=== PATIENT | female | born 1935 | race Caucasian/White ===

== ENCOUNTER → 2020-11-26 15:32 | Outpatient (CLI) | payer MEDICARE, BC, SELFPAY ==
--- NOTE | ~2020-11-26 | XR_ITS ---
XR knee LT min 4V 11/26/2020 15:52 Indication: Left knee pain Procedure: 4 views left knee Comparison: 05/02/2019 Findings: There is severe osteoarthritis, most advanced at the medial compartment. No fracture or tra umatic malalignment. There is moderate medial soft tissue swelling. No acute fracture or traumatic ma lalignment. No significant joint effusion. No foreign bodies. Impression: 1: Severe osteoarthritis of the left knee. Reviewed, dictated and finalized at location B. Impression: 1: Severe osteoarthritis of the left knee.
== END ==
PROVIDERS: Visit Provider Nurse Practitioner Adult Health
DX: M17.12 Unilateral primary osteoarthritis, left knee (principal)
CPT/HCPCS: 73564

== ENCOUNTER 2025-06-29 17:19 | Emergency (ER) | payer MEDICARE, BC, SELFPAY ==
--- NOTE | ~2025-06-29 | XR_ITS ---
EXAMINATION: XR hand LT min 3V DATE: 06/29/2025 18:30 INDICATION: Trauma. TECHNIQUE: Views of left hand were obtained. COMPARISON: None. FINDINGS: No acute fractures of the left hand. Osteopenic bones. Severe degenerative changes of first carpometacarpal joint. Arthritis of interphalangeal joints. IMPRESSION: 1. No acute fractures. Diffuse osteopenia with arthritis as described above. Repeat x-rays are recommended if symptoms are localized and persistent. Reviewed, dictated and finalized at location T. INUOUS PICKLING LINE PICKLER HELPER IMPRESSION: 1. No acute fractures. Diffuse osteopenia with arthritis as described above. Re peat x-rays are recommended if symptoms are localized and persistent.
--- NOTE | ~2025-06-29 | CT_ITS ---
EXAMINATION: CT brain wo con DATE: 06/29/2025 18:06 INDICATION: Trauma due to fall. Patient on blood thinner. TECHNIQUE: Computed tomography (CT) of the head was performed without intravenous contrast. The mA was adjusted according to patient size. Iterative reconstruction technique was employed. The dose-length product was 733.07 mGy-cm. COMPARISON: None FINDINGS: No acute intracranial bleed are noted. However, there is evidence of low density subdural collections on both sides. There is peripheral chronic subdural collection on the left side measuring up to 12 mm in width. Chronic low density subdural collection is noted to the right of falx cerebri, measuring 9 mm in width. No effacement of sulci are seen. No ventriculomegaly. There is minimal midline shift to the right by less than 2 mm. No acute or focal abnormalities in the posterior fossa. No acute cranial fracture is noted. There is hematoma of the scalp in the left supraorbital region. IMPRESSION: 1. No acute intracranial bleed. 2. 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 Minimal midline shift to the right. There is no effacement of sulci. 3. Hematoma on the scalp in the left supraorbital region. 4. Critical findings conveyed to attending physician at 6:25 PM by telephone call. Reviewed, dictated and finalized at location T. RDOUS MATERIAL TECHNICIAN IMPRESSION: 1. No acute intracranial bleed. 2. 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 Minim al midline shift to the right. There is no effacement of sulci. 3. Hematoma on the scalp in the left supraorbital region. 4. Critical findings conveyed to attending physician at 6:25 PM by telephone sherie escobar
--- NOTE | ~2025-06-29 | CT_ITS ---
EXAMINATION: CT facial bones and cervical spine: DATE: 06/29/2025. INDICATION: Trauma. Patient on blood thinners. TECHNIQUE: CT obtained through facial bones and C-spine and reviewed in multiple projections. Radiation dose 955 MG Y C.M. COMPARISON: None. FINDINGS: Hematoma the scalp in the left supraorbital region. The orbital floors are intact. I globes are intact. The pneumatic arches are normal. No acute findings of the mandible. No acute fractures of the cervical vertebrae. No compromise of bony spinal canal or neural foramen. Paravertebral soft tissues are unremarkable. IMPRESSION: 1. No acute facial fractures. Soft tissue hematoma the scalp in the left supraorbital region. 2. No acute fractures of the cervical vertebrae. No compromise of the spinal canal in the cervical region. Reviewed, dictated and finalized at location T. GER INFORMATION IMPRESSION: 1. No acute facial fractures. Soft tissue hematoma the scalp in the left suprao rbital region. 2. No acute fractures of the cervical vertebrae. No compromise of the spinal ca nal in the cervical region.
[2025-06-29 17:25] VITALS: BP 173/54; PULSE 61; RESP 18; TEMP 37; O2SAT 98
--- NOTE | 2025-06-29 17:26 | ED_ITS ---
HPI - Head Injury General Chief complaint: Head Injury <Joan Yung CLINICAL PSYCHOLOGY TEACHER - Last Filed: 06/29/25 17:30> Stated complaint: tripped and fell hitting head, on plavix <Joan Yung APRN - Last Filed: 06/29/25 17:30> Time Seen by Provider: 06/29/25 17:26 <Joan Yung CLINICAL PSYCHOLOGY TEACHER - Last Filed: 06/29/25 17:30> Focused HPI: Patient is an 82-year-old female who presents to the ER after sustaining a fall. Her family reports she missed a cement step and fell forward landing on her face. Patient reports she is on Plavix and has a pacemaker. She denies any loss of consciousness, visual changes, or nausea. Patient endorses a history of high blood pressure. GENERAL: Well-appearing, well-nourished, and in no acute distress. HEAD: Normocephalic, approximately 1 cm laceration to L distal orbital area, approximately 1 cm laceration to L forehead CHEST: Clear to auscultation. ?No respiratory distress. HEART: Bradycardia, regular rhythm.? NEURO: ?Alert and oriented x3. Patient screened in triage and initial orders placed.? ?Additional care and disposition to be based upon?diagnostic testing and treatment. <Joan Yung, CLINICAL PSYCHOLOGY TEACHER - Last Filed: 06/29/25 17:30> Focused HPI: Patient is an 82-year-old female who presents to the ER after sustaining a fall. Her family reports she missed a cement step and fell forward landing on her face. Patient reports she is on Plavix and has a pacemaker. She denies any loss of consciousness, visual changes, or nausea. Patient endorses a history of high blood pressure. She is up to date on tetanus. Reports pain to the left hand. GENERAL: Well-appearing, well-nourished, and in no acute distress. HEAD: Normocephalic, approximately 1 cm laceration to L distal orbital area, approximately 1 cm laceration to L forehead CHEST: Clear to auscultation. ?No respiratory distress. HEART: Bradycardia, regular rhythm.? NEURO: ?Alert and oriented x3. Patient screened in triage and initial orders placed.? ?Additional care and disposition to be based upon?diagnostic testing and treatment. <Nanette L. Mchugh, PA-C - Last Filed: 06/29/25 19:15> Related Data Allergies/Adverse reactions: Allergies Allergy/AdvReac Type Severity Reaction Status Date / Time Sulfa (Sulfonamide Allergy Unknown Hives Verified 06/29/25 17:21 Antibiotics) <Joan Yung APRN - Last Filed: 06/29/25 17:30> Review of Systems Review of Systems: All systems reviewed & are unremarkable except as noted in HPI and below <Nanette Mchugh PA-C - Last Filed: 06/29/25 19:15> PMFSH Past Medical History Medical History: Medical History (Updated 06/29/25 @ 19:14 by Nanette Mchugh PA-C) Hyperlipidemia Hypertension <Joan Yung APRN - Last Filed: 06/29/25 17:30> Family History Family History: Family History (Updated 11/06/16 @ 23:56 by DOCTOR UNKNOWN) Father Hypertension, Onset Age: 67 Patient's father is Sibling Family history of coronary artery disease, Onset Age: 28 Patient's sister is Patient's brother is <Joan Yung APRN - Last Filed: 06/29/25 17:30> Social History Social History: Social History Second hand tobacco smoke exposure: No Alcohol intake: never <Joan Yung APRN - Last Filed: 06/29/25 17:30> Exam Narrative: GENERAL: Elderly, well-nourished, and in no acute distress. HEAD: Normocephalic. Superficial lacerations to the left eyelid and forehead EYES: PERRLA and EOMI. ENT: Nares clear, no rhinorrhea or epistaxis. Mucous membranes moist. Oropharynx without tonsillar hypertrophy exudate or other lesions. Bilateral TMs pearly billy non-bulging NECK: Supple. No adenopathy or masses. CHEST: Clear to auscultation. No respiratory distress. No wheezes rales or rhonchi HEART: Regular rate and rhythm. No murmur heard. Normal peripheral pulses. EXTREMITIES: Normal range of motion. No edema or obvious deformity. SKIN: Warm, dry, no rash. NEURO: No focal deficits. Alert and oriented x3. Cranial nerves 2-12 grossly intact PSYCH: Normal mood and affect <Nanette Mchugh PA-C - Last Filed: 06/29/25 19:15> Course Consultations Consultation #1: Spoke with Dr. Jose about patient and workup. Patient may follow up outpatient for chronic subdurals. No further evaluation needed at this time <Nanette Mchugh PA-C - Last Filed: 06/29/25 19:15> Date: 06/29/25 <Nanette Mchugh PA-C - Last Filed: 06/29/25 19:15> Vital Signs Vital signs: Vital Signs Temperature 98.6 F 06/29/25 17:25 Pulse Rate 61 06/29/25 17:25 Respiratory Rate 18 06/29/25 17:25 Blood Pressure 173/54 H 06/29/25 17:25 Pulse Oximetry 98 06/29/25 17:25 Oxygen Delivery Room Air 06/29/25 17:25 Temperature 98.6 F 06/29/25 17:25 Pulse Rate 61 06/29/25 17:25 Respiratory Rate 18 06/29/25 17:25 Blood Pressure 173/54 H 06/29/25 17:25 Pulse Oximetry 98 06/29/25 17:25 Oxygen Delivery Room Air 06/29/25 17:25 <Joan Yung, CLINICAL PSYCHOLOGY TEACHER - Last Filed: 06/29/25 17:30> Vital Signs Temperature 98.6 F 06/29/25 17:25 Pulse Rate 61 06/29/25 17:25 Respiratory Rate 18 06/29/25 17:25 Blood Pressure 173/54 H 06/29/25 17:25 Pulse Oximetry 98 06/29/25 17:25 Oxygen Delivery Room Air 06/29/25 17:25 Temperature 98.6 F 06/29/25 17:25 Pulse Rate 61 06/29/25 17:25 Respiratory Rate 18 06/29/25 17:25 Blood Pressure 173/54 H 06/29/25 17:25 Pulse Oximetry 98 06/29/25 17:25 Oxygen Delivery Room Air 06/29/25 17:25 <Nanette Mchugh PA-C - Last Filed: 06/29/25 19:15> Procedures Laceration Laceration 1: Date: 06/29/25 <ARACELI Cantu Last Filed: 06/29/25 19:15> Time: 19:14 <ARACELI Cantu Last Filed: 06/29/25 19:15> Site: face <ARACELI Cantu Last Filed: 06/29/25 19:15> Side (If applicable): left <ARACELI Cantu Last Filed: 06/29/25 19:15> Description: linear <ARACELI Cantu Last Filed: 06/29/25 19:15> Depth: simple, single layer <ARACELI Cantu Last Filed: 06/29/25 19:15> Pre-repair: irrigated <ARACELI Cantu Last Filed: 06/29/25 19:15> ====== Skin Level ======: Skin layer closed with: dermabond <ARACELI Cantu Last Filed: 06/29/25 19:15> ====== Subcutaneous Layer ======: ====== Muscle Layer ======: ====== Tendon Layer ======: MDM - Head Injury MDM Narrative Medical decision making narrative: Patient presents to the ER after a fall today with head injury. Patient is neurologically intact. CT brain without acute findings. Showing evidence of chronic bilateral subdurals. Cervical spine and facial bones without acute findings. Left hand x-ray without acute osseous abnormalities. Patient and family updated on workup. Patient may follow up patient with nurse surgery for chronic findings. Given warnings to return to the ER <ARACELI Cantu Last Filed: 06/29/25 19:15> Differential Diagnosis Differential diagnosis: Likely concussion without loss of consciousness, closed head injury, subdural hematoma and other (cervical spine fracture, facial bone fracture) <ARACELI Cantu Last Filed: 06/29/25 19:15> Imaging Data Radiologist's impression: ITS Impressions Head CT 06/29/25 18:09 IMPRESSION: 1. No acute intracranial bleed. 2. 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 Minimal midline shift to the right. There is no effacement of sulci. 3. Hematoma on the scalp in the left supraorbital region. 4. Critical findings conveyed to attending physician at 6:25 PM by telephone call. Head/Cervical Spine/Facial Bones CT 06/29/25 18:16 IMPRESSION: 1. No acute facial fractures. Soft tissue hematoma the scalp in the left supraorbital region. 2. No acute fractures of the cervical vertebrae. No compromise of the spinal canal in the cervical region. Hand X-Ray 06/29/25 18:43 IMPRESSION: 1. No acute fractures. Diffuse osteopenia with arthritis as described above. Repeat x-rays are recommended if symptoms are localized and persistent. <Nanette Mchugh PA-C - Last Filed: 06/29/25 19:15> Critical Care Time Critical Care Time Critical Care Time: No <Nanette Mchugh PA-C - Last Filed: 06/29/25 19:15> Discharge Plan Discharge Clinical Impression: Closed head injury, Chronic subdural hematoma, Contusion of left hand, Laceration <Joan Yung APRN - Last Filed: 06/29/25 17:30> Patient Disposition: Home <Joan Yung APRN - Last Filed: 06/29/25 17:30> Condition: Stable <Joan Yung APRN - Last Filed: 06/29/25 17:30> Instructions: Head Injury (ED), Skin Adhesive Care (ED), Facial Laceration (ED) <Joan Yung APRN - Last Filed: 06/29/25 17:30> Additional Instructions: Return to the emergency department if you experience fever, chest pain, shortness of breath, abdominal pain with nausea and vomiting, weakness, numbness, or any other symptoms that are concerning to you. Rest. Ice to the area. Over the counter pain medication as needed Follow up with neurosurgery <Joan Yung APRN - Last Filed: 06/29/25 17:30> Patient Language: Norwegian <Joan Yung APRN - Last Filed: 06/29/25 17:30> Follow-up/Referrals: Darin Jose MD [Physician, Neurosurgery] UNKNOWN,DOCTOR [Primary Care Provider] <Joan Yung, CLINICAL PSYCHOLOGY TEACHER - Last Filed: 06/29/25 17:30>
--- OUTSIDE RECORDS SUMMARY | 2025-06-29 18:15 | XMS_ITS | Patient Health Record ---
Author Organization [facility] Address [address] [place] [address] Care Team Providers Care Toe Stapler Name Role Phone Otoniel Springer MD Primary Care Provider Vasu Duenas Unavailable [phone] Allergies Allergen (clinical drug ingredient) Drug/Non Drug Allergy documented on EMR Reaction Allergy Type Onset Date Status hydrochlorothiazide / triamterene Triamterene-HCTZ Unknown Drug Allergy Active SULFA Drugs Unknown Drug Allergy Activ e Reason For Referral No Information Medications Medication SIG (Take, Route, Frequency, Duration) Notes Start Date End Date Status Pepcid Complete Acti ve OTC/Vitamins D3, B12, Caltrate Active Metoprolol Succinate Active Ferrex 150 Active Rosuvastatin Calcium Active Lisinopril Active Furosemide Active Clopidogrel Bisulfate Active Social History Tobacco Use: Social History Observation Description Date Details (start date - stop date) Never Smoker NA - NA Tobacco Use/Smoking Question Answer Notes Are you a nonsmoker Problems Problem Type SNOMED Code ICD Code Onset Dates Problem Status W/U Status Risk Notes Problem History of malignant neoplasm of stomach (018061973) Personal history of other malignant neoplasm of stomach (Z85.028) Active confirmed Problem Iron deficiency anemia (81592562) Iron deficiency anemia, unspecified iron deficiency anemia type (D50.9) Active confirmed Problem Black stools (61883258) Black stools (K92.1) Active confirmed 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 Plan Of Treatment Pending Test Test Name Order Date EGD 10/14/2020 Insurance Providers Payer Name Payer Address Payer Phone Subscriber Number Group Number Insured Name Patient Relationship to Insured Coverage Start Date Coverage End Date Medicare E2 [address] [address] [place] [address] [id number] [employer] Self - patient is the insured 2 [facility] E2 [address] [place] [address] [id number] Joaquim Pecka Self - patient is the insured Medical (General) History Medical History History ICD Code Hiatal Hernia Diverticulosis Stomach Cancer Kidney Problems TIA MALT Anemia Hypertension Diabetes Type 2 Hypercholesterolemia Tachycardia Osteoarthritis Surgical History Surgery Date(Month/Year) Colonoscopy (Outside Provider) 2018 Endoscopy 03/2018 Cholecystectomy Partial hysterectomy Stomach cancer Hernia repair Bowel Lift Pacemaker Hospitalization History Reason Date(Month/Year) Child x2 Chest pain Symptoms of Heart Attack
--- OUTSIDE RECORDS SUMMARY | 2025-06-29 18:15 | XMS_ITS | Encounter Summary ---
Author Organization [facility] Address [address] [place] [address] Care Team Providers Care Betting Clerks Name Role Phone Otoniel Springer MD Primary Care Provider [phone] Reason for Visit * Reason Comments Patient Communication Encounter Details Date Type Department Care Team ([facility] st Contact Info) Description 12/12/2024 Telephone [facility] [address] [place] [address] Otoniel Springer MD [address] [facility] [address] [place] [address] Patient Communication Social History Tobacco Use Types Packs/Day Years Used Date Smoking Tobacco: Never Smokeless Tobacco: Never Alcohol Use Standard Drinks/Week Comments Not Currently 0 (1 standard drink = 0.6 oz pur e alcohol) Social Connections Answer Date Recorded Frequency of Communication with Friends and Fami ly Not on file 07/10/2020 Frequency of Social Gatherings with Friends and Family Not on file 07/10/2020 How often do you attend congregational or islam serv ices? Patient declined 07/10/2020 Do you belong to any clubs o r organizations such as congregational groups, unions, fraternal or athletic groups, or school groups? Patient declined 07/10/2020 Attends Club or Organization Meetings Not on bradley e 07/10/2020 Marital Status Not on file 07/10/2020 Financial Resource Strain Answer Date R ecorded How hard is it for you to pa y for the very basics like food, housing, medical care, and heating? Not hard at all 07/28/2021 Food Insecurity Answer Date Recorded In the past 12 months, have you worried that your food would run out before you had money to buy more? Never true 07/28/2021 In the past 12 months, did y ou run out of food and didn't have money to buy more? Never true 07/28/2021 Transportation Needs Answer Date Record ed In the past 12 months, has l ack of transportation kept you from medical appointments or from getting medications? No 07/28/2021 Lack of Transportation (Non-Medical) Not on file 07/28/2021 Feeling Safe Answer Date Recorded Are you in a relationship wi th someone who hurts you emotionally and/or physically? No 09/04/2024 Food Insecurity Answer Date Recorded Patient needs follow up regardin 11/23/2024 Transportation Needs Answer Date Record ed Patient needs follow up regardin 11/23/2024 Housing Stability Answer Date Recorded Social/Environmental Concerns No concerns Utility Needs Answer Date Recorded Patient needs follow up regardin 11/23/2024 Education Answer Date Recorded What is the highest level of school you have completed or the highest degree you have received? High school graduate 07/10/2020 Comments No Sex and Gender Information Value Date Recorded Sex Assigned at Not on file Legal Sex Female 3:30 AM REMELTER Gender Identity Not on file Sexual Orientation Not on file Occupation Industry Job Start Date Job End Date retired Not on file Not on file Not on file documented as of this encounter Miscellaneous Notes * Telephone Encounter - Savita Billingsley PCA - 12/12/2024 2:32 PM CDT Called and let patient know that labs are in and sent to [facility] * Telephone Encounter - Otoniel Springer MD - 12/12/2024 12:43 PM CDT In computer at [facility] * Telephone Encounter - Dinah Hillman - 12/12/2024 10:45 AM CDT Copied from [facility] #[id number]. Topic: Patient or Caregiver Communication Request >> December 12, 2024 10:43 AM Dinah Vieyra wrote: Patient or Caregiver requesting that a message be sent to Care Team Caller: Aaliyah Peck Patient/Caregiver Callback Number: [phone] Call Notes: needing to know if she needs blood work orders done and if she does need [facility] documented in this encounter Plan of Treatment Upcoming Encounters Date Type Department Care Team (Late st Contact Info) Description 07/10/2025 10:40 AM REMELTER Office Visit [facility] [address] [place] [id number] Otoniel Springer MD [address] [place] [address] [address] [place] [address] 10/01/2025 8:45 AM REMELTER Procedure visit [facility] AT [address] [place] [address] 12/17/2025 10:30 AM CDT Procedure visit [facility] AT [address] [place] [address] 12/17/2025 11:00 AM CDT Office Visit [facility] AT [address] [place] [address] Ebony Miller NP [address] [place] [address] [address] [place] [address] 04/01/2026 10:00 AM CDT Office Visit [facility] At [address] [place] [address] Evan Patterson MD [facility] [address] [place] [address] Scheduled Orders Name Type Priority Associated Diagnoses Orde r Schedule MICROALBUMIN/CREATININ E RATIO, RANDOM UR Lab Routine Type 2 diabetes mellitus with stage 4 chronic kidney disease, without long-term current use of insulin ([facility]) Expected: 12/12/2024 (Approximate), Expires: 12/12/2025 documented as of this encounter Procedures Procedure Name Priority Date/Time Associated Diagnosis Comments MICROALBUMIN/CREATINI NE RATIO, RANDOM UR Routine 12/14/2024 10:45 AM CDT CBC WITH DIFFERENTIAL Routine 12/14/2024 10:45 AM CDT Essential hypertension TSH Routine 12/14/2024 10:45 AM CDT Other hyperlipidemia HEMOGLOBIN A1C Routine 12/14/2024 10:45 AM CDT Type 2 diabetes mellitus with stage 4 chronic kidney disease, without long-term current use of insulin ([facility]) LIPID PANEL Routine 12/14/2024 10:45 AM CDT Other hyperlipidemia COMPREHENSIVE METABOLIC PANEL Routine 12/14/2024 10:45 AM CDT Other hyperlipidemia documented in this encounter Results * MICROALBUMIN/CREATININE RATIO, RANDOM UR (12/14/2024 10:45 AM CDT) CREATININE, URINE 103 20 - 275 mg/dL [facility] ALBUMIN, URINE 0.8 See Note: mg/dL [facility] Comment: Reference Range: Reference Range Not established ALB/CREAT RATIO, URINE 8 <30 mg/g creat [facility] Comment: The ADA defines abnormalities in albumin excretion as follows: Albuminuria Category Result (mg/g creatinine) Normal to Mildly increased <30 Moderately increased 30-299 Severely increased > OR = 300 The ADA recommends that at least two of three specimens collected within a 3-6 month period be abnormal before considering a patient to be within a diagnostic category. FASTING:YES FASTING: YES Test Performed at: [facility] [address] [facility] [place] [address] Shira Rutherford MD 12/14/2024 10:4 5 AM CDT 12/14/2024 10:47 AM CDT Otoniel Springer MD URINE ORDERABLES Final Result Performing Organization Address City/State/ZIP [facility] Phone Number [facility] [phone] [facility] [address] [facility] [place] [address] * (ABNORMAL) HEMOGLOBIN A1C (12/14/2024 10:45 AM CDT) HEMOGLOBIN A1C 7.6(H) <5.7 % of total Hgb [facility] Comment: For someone without known diabetes, a hemoglobin A1c value of 6.5% or greater indicates that they may have diabetes and this should be confirmed with a follow-up test. For someone with known diabetes, a value <7% indicates that their diabetes is well controlled and a value greater than or equal to 7% indicates suboptimal control. A1c targets should be individualized based on duration of diabetes, age, comorbid conditions, and other considerations. Currently, no consensus exists regarding use of hemoglobin A1c for diagnosis of diabetes for children. ESTIMATED AVERAGE GLUCOSE (MG/DL) 171 mg/dL [facility] ESTIMATED AVERAGE GLUCOSE (MMOL/L) 9.5 mmol/L [facility] Comment: FASTING:YES FASTING: YES Test Performed at: [facility] [address] [place] [address] Shira Rutherford Blood 12/14/2024 10:4 5 AM CDT 12/14/2024 10:47 AM CDT Otoniel Springer MD CHEMISTRY ORDERABLES Final Re sult [facility] [phone] [facility] [address] [place] [address] * TSH (12/14/2024 10:45 AM CDT) Pathologist [facility] TSH 2.29 0.40 - 4.50 mIU/L [facility] Comment: FASTING:YES FASTING: YES Test Performed at: [facility] [address] [address] Shira Rutherford MD Blood 12/14/2024 10:4 5 AM CDT 12/14/2024 10:47 AM CDT us Otoniel Springer MD CHEMISTRY ORDERABLES Final Re sult [facility] [phone] [facility] [address] [address] * (ABNORMAL) LIPID PANEL (12/14/2024 10:45 AM CDT) [facility] CHOLESTEROL 142 <200 mg/dL [facility] HDL 45(L) > OR = 50 mg/dL [facility] TRIGLYCERIDE 202(H) <150 mg/dL [facility] Comment: If a non-fasting specimen was collected, consider repeat triglyceride testing on a fasting specimen if clinically indicated. Rudy et al. J. of Clin. Lipidol. 2015;9:129-169. LDL CALCULATED 70 mg/dL (calc) [facility] Comment: Reference range: <100 Desirable range <100 mg/dL for primary prevention; <70 mg/dL for patients with CHD or diabetic patients with > or = 2 CHD risk factors. LDL-C is now calculated using the Donavan-Sarah calculation, which is a validated novel method providing better accuracy than the Friedewald equation in the estimation of LDL-C. Donavan JANG et al. TREY. 2013;310(19): 5104-6747 (http://education.PagPop/faq/AAM672) CHOL/HDL RATIO 3.2 <5.0 (calc) [facility] NON-HDL CHOLESTEROL 97 <130 mg/dL (calc) [facility] Comment: For patients with diabetes plus 1 major ASCVD risk factor, treating to a non-HDL-C goal of <100 mg/dL (LDL-C of <70 mg/dL) is considered a therapeutic option. Test Performed at: [facility] [address] [address] Shira Rutherford MD Blood 12/14/2024 10:4 5 AM CDT 12/14/2024 10:47 AM CDT us Otoniel Springer MD CHEMISTRY ORDERABLES Final Re sult [facility] [phone] [facility] [address] [address] * (ABNORMAL) COMPREHENSIVE METABOLIC PANEL (12/14/2024 10:45 AM CDT) GLUCOSE 136(H) 65 - 99 mg/dL [facility] Comment: Fasting reference interval For someone without known diabetes, a glucose value >125 mg/dL indicates that they may have diabetes and this should be confirmed with a follow-up test. BUN 50(H) 7 - 25 mg/dL [facility] CREATININE 2.20(H) 0.60 - 0.95 mg/dL [facility] GFR 21(L) > OR = 60 mL/min/1.7 3m2 [facility] BUN/CREAT RATIO 23(H) 6 - 22 (calc) [facility] SODIUM 143 135 - 146 mmol/L [facility] POTASSIUM 4.6 3.5 - 5.3 mmol/L [facility] CHLORIDE 106 98 - 110 mmol/L [facility] CO2 27 20 - 32 mmol/L [facility] CALCIUM 9.3 8.6 - 10.4 mg/dL [facility] TOTAL PROTEIN 6.7 6.1 - 8.1 g/dL [facility] ALBUMIN 4.1 3.6 - 5.1 g/dL [facility] GLOBULIN 2.6 1.9 - 3.7 g/dL (calc) [facility] ALBUMIN/GLOBULIN RATIO 1.6 1.0 - 2.5 (calc) [facility] BILIRUBIN TOTAL 0.8 0.2 - 1.2 mg/dL [facility] ALKALINE PHOSPHATASE 75 37 - 153 U/L [facility] AST 17 10 - 35 U/L [facility] ALT 14 6 - 29 U/L [facility] Comment: FASTING:YES FASTING: YES Test Performed at: [facility] [address] [facility] [address] Shira Rutherford MD Blood 12/14/2024 10:4 5 AM CDT 12/14/2024 10:47 AM CDT us Otoniel Springer MD CHEMISTRY ORDERABLES Final Re sult [facility] [phone] [facility] [address] [facility] [address] * (ABNORMAL) CBC WITH DIFFERENTIAL (12/14/2024 10:45 AM CDT) WBC 5.5 3.8 - 10.8 Thousand/u L [facility] RBC 3.55(L) 3.80 - 5.10 Million/uL [facility] HEMOGLOBIN 10.7(L) 11.7 - 15.5 g/dL [facility] HEMATOCRIT 35.1 35.0 - 45.0 % [facility] MCV 98.9 80.0 - 100.0 fL [facility] MCH 30.1 27.0 - 33.0 pg [facility] MCHC 30.5(L) 32.0 - 36.0 g/dL [facility] Comment: For adults, a slight decrease in the calculated MCHC value (in the range of 30 to 32 g/dL) is most likely not clinically significant; however, it should be interpreted with caution in correlation with other red cell parameters and the patient's clinical condition. RDW 12.8 11.0 - 15.0 % [facility] PLATELETS 253 140 - 400 Thousand/u L [facility] MPV 11.3 7.5 - 12.5 fL [facility] NEUTROPHIL ABSOLUTE 3,416 1,500 - 7,800 cells/uL [facility] LYMPHOCYTE ABSOLUTE 1,381 850 - 3,900 cells/uL [facility] MONOCYTE ABSOLUTE 418 200 - 950 cells/uL [facility] EOSINOPHIL ABSOLUTE 237 15 - 500 cells/uL [facility] BASOPHILS ABSOLUTE 50 0 - 200 cells/uL [facility] NEUTROPHIL 62.1 % [facility] LYMPHOCYTES 25.1 % [facility] MONOCYTE 7.6 % [facility] EOSINOPHILS 4.3 % [facility] BASOPHILS 0.9 % [facility] Comment: FASTING:YES FASTING: YES Test Performed at: [facility] [address] [place] [address] Shira Rutherford MD Blood 12/14/2024 10:4 5 AM CDT 12/14/2024 10:47 AM CDT us Otoniel Springer MD HEMATOLOGY ORDERABLES Final R esult [facility] [phone] [facility] [address] [place] [address] documented in this encounter Visit Diagnoses Diagnosis Type 2 diabetes mellitus with stage 4 chronic kidney disease, without long-term current use of insulin ([facility])- Primary Other hyperlipidemia Essential hypertension Unspecified essential hypertension documented in this encounter Care Teams Betting Clerks Relationship Specialty Start Date End Date Otoniel Springer MD [address] [place] [address] PCP - General 11/24/06 documented as of this encounter
--- OUTSIDE RECORDS SUMMARY | 2025-06-29 18:15 | XMS_ITS | Clinical Summary ---
Author Organization [facility] Address [address] [place] [address] Care Team Providers Care Life Science Technical Officer Name Role Phone Otoniel Springer MD Primary Care Provider [phone] Allergies Active Allergy Reactions Criticality Noted Date Comments Sulfa (Sulfonamide Antibiotics) Unknown 01/14/2004 Other reaction(s): Unknown Other reaction(s): Unknown Triamterene-Hydrochlorothi azid Unknown 01/14/2004 Other reaction(s): Unknown Medications cyanocobalamin 1,000 mcg Tablet Take 1,000 mcg by mouth late in the day Pt takes every other night. Active CHOLECALCIFEROL , VITAMIN D3, (VITAMIN D3 ORAL) Take 2,000 mg by mouth late in the day . Active mometasone (NASONEX) 50 mcg/actuation [place], Non-Aerosol Administer 2 Sprays in each nostril daily. 17 Gram 0 5 Active cetirizine (ZYRTEC) 10 mg tablet Take 10 mg by mouth 1 time daily as needed . Active famotidine (PEPCID) 20 mg tablet Take 1 Tablet (20 mg) by mouth 2 times daily. 30 Tablet 3 9 Active metoprolol succinate (TOPROL XL) 50 mg Extended Release 24 hour tablet Take 0.5 Tablets (25 mg) by mouth daily. 90 Tablet 3 9 Active clopidogreL (PLAVIX) 75 mg Tablet Take 1 Tablet (75 mg) by mouth daily. 90 Tablet 3 4 Active metoprolol tartrate (LOPRESSOR) 25 mg tablet Take 25 mg by mouth daily. 5 Active sAXagliptin (Onglyza) 2.5 mg tablet Take 1 Tablet (2.5 mg) by mouth daily with breakfast. 100 Tablet 3 5 Active furosemide (LASIX) 20 mg tablet TAKE 1 TABLET BY MOUTH EVERY DAY 90 Tablet 3 5 Active rosuvastatin (CRESTOR) 10 mg tablet TAKE 1 TABLET BY MOUTH EVERYDAY AT BEDTIME 100 Tablet 3 5 Active Active Problems Patient Care Coordination No te Formatting of this note migh t be different from the original. 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 History of TIA (transient ischemic attack) and s troke 03/09/2018 AV block, complete 06/02/2017 Type 2 diabetes mellitus wit h stage 4 chronic kidney disease, without long-term current use of insulin 11/24/2016 Edema 05/01/2014 Type 2 diabetes mellitus wit h hemoglobin A1c goal of less than 7.0% 01/25/2009 Chronic anemia 04/18/2007 Esophageal reflux 10/18/2006 Benign neoplasm of skin, site unspecified 2003 Osteoarthrosis, unspecified whether generalized or localized, unspecified site 01/14/2004 Essential hypertension 10/02/2003 Hyperlipemia 10/02/2003 Resolved Problems Problem Noted Date Diagnosed Date Resolved Date PRATHER (dyspnea on exertion) 03/09/2018 Acute renal failure with tubular necrosis 02/25/2017 03/23/2017 Hyperkalemia 02/25/2017 05/27/2022 Acute cystitis without hematuria- poa 02/25/2017 03/23/2017 CKD (chronic kidney disease) stage 3, GFR 30-59 ml/min 11/24/2016 05/27/2022 Chronic renal insufficiency 01/01/2015 03/23/2017 Breast screening, unspecified 04/18/2007 03/13/2008 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 [address] [place] [address] Otoniel Springer MD 05/03/2025 Refill [facility] [address] [place] [address] Otoniel Springer MD 04/24/2025 External Device Data STL ABSTRACTION Provider, Abstract 04/17/2025 External Device Data STL ABSTRACTION Provider, Abstract from Last 3 Months Immunizations Immunization Administration Dates Next Due (ADACEL/BOOSTRIX)(10 YR UP) TDAP VACCINE, 0.5ML, IM 07/07/2022,06/03/2012 (AREXVY)(60 YR UP) RSV, RAFFAELE MBINANT, PROTEIN SUBUNIT RSVPREF, ADJUVANT RECONSTITUTED, 0.5 ML, PF 09/23/2023 (Moderna Bivalent)(6 Mos Up) COVID-19 Vaccine - Emergency Use Authorization, MRNA(Pf) 50 Mcg/0.5 Ml Im Susp 05/12/2022 (PNEUMOVAX 23)(50 YRS UP) PN EUMOCOCCAL POLYSACCHARIDE (PPV23) 0.5 ML, IM 03/06/2019,08/15/2007,05/12/2001 (PREVNAR 13)(6 WKS UP) PNEUM OCOCCAL CONJUGATE (PCV13) 0.5 ML, IM 08/29/2013 (SHINGRIX)(50 YRS UP) ZOSTER VACCINE RECOMBINANT, 0.5 ML, IM 07/04/2018,05/06/2018 (SPIKEVAX) (12 YRS UP PRIMAR Y SERIES) COVID-19 VACCINE - MRNA-1273(PF) 100 MCG/0.5 ML IM SUSP 06/24/2021,10/03/2020,09/05/2020 (TDVAX)(7 YRS UP) TETANUS AN D DIPHTHERIA TOXOIDS, ADSORBED (2 LF OF TETANUS TOXOID AND 2 LF OF DIPHTHERIA TOXOID), 0.5ML (PF), IM 07/03/2002 INFLUENZA VACCINE HIGH DOSE QUADRIVALENT 65 YR UP PF IM 05/26/2023,04/17/2020 INFLUENZA VACCINE HIGH DOSE TRIVALENT SPLIT VIRUS, (65 YR UP), 0.5ML (PF), IM 04/19/2024 INFLUENZA VACCINE QUADRIVALE NT ADJ 65 YR UP PF IM 05/26/2023 Influenza Seasonal Unspecifi ed Formulation IM 05/01/2022,05/02/2016,05/18/2013,05/25,06/05/2011,05/08/2010,05/11/2009 ,05/02/2008 Influenza Vaccine High Dose 65+ Yrs IM 1 ,05/20/2021,04/17/2020,05/29,06/20/2017,06/25/2015,05/02/2014 Influenza Vaccine Split 3+ Yrs IM 05/06/2004 Influenza Vaccine Tri Adjuva nted 65+ PF IM 05/27/2018 Influenza Vaccine Tri Split 4+ Im 2015,05/18/2013,05/25/2012,06/05,05/08/2010,05/11/2009,05/02/2008 Zoster Vaccine Live SQ 07/04/2018,10/01/2014 Family History Medical History Relation Name Comments Cancer Brother 1 paget of colon, on chemo Heart Disease Brother 2 Heart Disease Brother 3 Heart Disease Brother 4 Heart Disease Brother 5 heart transpla nt Hypertension Sister 1 Alzheimer's Disease Sister 2 Cancer Sister 3 melona Other Sister 4 polycystic kidn ey disease dx order Other Sister 5 rhematic fever CAD Relation Name Status Comments Brother 1 Brother 2 Brother 3 Brother 4 Brother 5 Father Mother Sister 1 Sister 2 Sister 3 Sister 4 Sister 5 Social History Tobacco Use Types Packs/Day Years Used Date Smoking Tobacco: Never Smokeless Tobacco: Never Tobacco Cessation:Counseling Given: No Alcohol Use Standard Drinks/Week Comments Not Currently 0 (1 standard drink = 0.6 oz pur e alcohol) Social Connections Answer Date Recorded Frequency of Communication with Friends and Fami ly Not on file 07/10/2020 Frequency of Social Gatherings with Friends and Family Not on file 07/10/2020 How often do you attend pentecostalism or jehovah's witness serv ices? Patient declined 07/10/2020 Do you belong to any clubs o r organizations such as pentecostalism groups, unions, fraternal or athletic groups, or [...] on file Legal Sex Female 3:30 AM SHALLOT PACKER Gender Identity Not on file Sexual Orientation Not on file Occupation Industry Job Start Date Job End Date retired Not on file Not on file Not on file Last Filed Vital Signs Vital Sign Reading Time Taken Comments Blood Pressure 140/62 03/28/2025 9:48 AM CDT Pulse 61 03/28/2025 9:48 AM CDT Temperature 36.5 C (97.7 F) 09/04/2024 10:40 AM SHALLOT PACKER Respiratory Rate 16 12/13/2024 1:39 PM CDT Oxygen Saturation 99% 03/28/2025 9:48 AM CDT Inhaled Oxygen Concentration - - Weight 56.5 kg (124 lb 9.6 oz) 03/28/2025 9:48 A M CDT Height 157.5 cm (5' 2) 03/28/2025 9:48 AM CDT Body Mass Index 22.79 03/28/2025 9:48 AM CDT Plan of Treatment Upcoming Encounters Date Type Department Care Team (Late st Contact Info) Description 07/10/2025 10:40 AM SHALLOT PACKER Office Visit [facility] Primary Care [address] [place] [address] [phone] Otoniel Springer MD [address] [place] [address] [address] [place] [address] 10/01/2025 8:45 AM SHALLOT PACKER Procedure visit [facility] AT [address] [place] [address] 12/17/2025 10:30 AM CDT Procedure visit [facility] AT [address] [place] [address] 12/17/2025 11:00 AM CDT Office Visit [facility] AT [address] [place] [address] Ebony Miller NP [address] [place] [address] [address] [place] [address] 04/01/2026 10:00 AM CDT Office Visit [facility] At [address] [place] [address] Evan Patterson MD [address] [place] [address] Health Maintenance Due Date Last Done Comments ZOSTER VACCINE (2 of 2) 08/29/2018 07/04/20 18, 07/04/2018, 05/06/2018, Additional history exists DIABETES ANNUAL FOOT EXAM 12/02/20242023, 06/01/2023, 07/28/2021, Additional history exists Traditional Medicare (ACO) A nnual Wellness Visit 12/03/2024 12/03/2023, 07/28/2021, 07/10/2020, Additional history exists BREAST CANCER SCREENING 02/01/2025 02/02/20 24, 02/02/2024, 02/02/2024, Additional history exists INFLUENZA VACCINE (#1) 2025 4, 04/19/2024, 05/26/2023, Additional history exists COVID-19 Vaccine (2024- 6 season) 2025 05/12/2022, 06/24/2021, 10/03/2020, Additional history exists DIABETES HBA1C Q 6 MONTHS 06/16/20252024, 12/14/2024, 06/09/2024, Additional history exists DIABETES ANNUAL RETINAL EXAM 09/27/2025, 07/08/2023, 07/08/2023, Additional history exists DIABETES: A1C (Auto Order) 12/14/202512/14, 12/14/2024, 06/09/2024, Additional history exists DIABETES MICROALBUMIN ANNUAL SCREEN 06/27/2026 06/27/2025, 12/14/2024, 06/09/2024, Additional history exists LDL CHOLESTEROL ANNUAL 06/27/2026 5, 12/14/2024, 06/09/2024, Additional history exists OSTEOPOROSIS SCREENING 08/23/2029 5, 08/23/2024, 07/31/2022, Additional history exists DTAP/TDAP/TD VACCINES (3 - T d or Tdap) 07/07/2032 07/07/2022, 06/03/2012, 07/03/2002 PNEUMOCOCCAL VACCINE 50+ YEARS Completed 0 03/06/2019, 08/29/2013, 08/15/2007, Additional history exists RSV VACCINE (60+ or ) Completed 09/23/2023 Medical Devices Implanted Type Area Protective Service Specialist Device Identifier Shelf Expiration Date Model / Serial / Lot Ra Lead- 7 Implanted: by Eh Chaudhry MD (Quantity not on file) Lead Left: Chest Sensorion 11/26/2018 [id number] / [id number] / [id number] Description:mri compatible l ead Rv Lead- 7 Implanted: by Eh Chaudhry MD (Quantity not on file) Lead Left: Chest Sensorion 01/29/2019 7741 / [id number] / [id number] Description:mri compatible l ead Pacemaker-01/31 Implanted: by Eh Chaudhry MD (Quantity not on file) Pacemaker Left: Chest BOSTON Sudiksha 12/29/2018 L111 / [id number] / [id number] Description:mri compatible p pm Pacemaker Accolade Mri L311 - [id number] Implanted:Qty : 1 on 09/04/2024 by Marcela Bass MD at [facility] Pacemaker Left: Chest [employer]OST[employer] SCI DHIRAJ [id number] 06/06/2026 [id number] / [id number] / Procedures Procedure Name Priority Date/Time Associated Diagnosis Comments ABN TEST REFUSAL Routine 06/27/2025 9:54 AM SHALLOT PACKER VITAMIN D 25 HYDROXY Routine 06/27/2025 9:54 AM SHALLOT PACKER Vitamin D deficiency VITAMIN B12 LEVEL Routine 06/27/2025 9:5 4 AM SHALLOT PACKER Vitamin B12 deficiency (non anemic) TSH Routine 06/27/2025 9:54 AM SHALLOT PACKER Other hyperlipidemia LIPID PANEL Routine 06/27/2025 9:54 AM SHALLOT PACKER Other hyperlipidemia COMPREHENSIVE METABOLIC PANEL Routine 06/27/2025 9:54 AM SHALLOT PACKER Other hyperlipidemia CBC WITH DIFFERENTIAL Routine 06/27/2025 9:54 AM SHALLOT PACKER Essential hypertension MICROALBUMIN/CREATINI NE RATIO, RANDOM UR Routine 06/27/2025 9:54 AM SHALLOT PACKER Type 2 diabetes mellitus with stage 4 chronic kidney disease, without long-term current use of insulin (CMS/HCC) WI REM INTERROG PM/LDLS PM/IDS <90 D TECH REVIEW Routine 06/04/2025 4:23 AM SHALLOT PACKER AV block, complete (CMS/HCC) Pacemaker WI REM INTERROG PM/LDLS PM <90 D PHYS/QHP Routine 06/04/2025 4:23 AM SHALLOT PACKER AV block, complete (CMS/HCC) Pacemaker HEMOGLOBIN A1C Routine 12/14/2024 10:45 AM CDT Type 2 diabetes mellitus with stage 4 chronic kidney disease, without long-term current use of insulin (CMS/HCC) MAMMO SCREEN BILAT W OR WO CAD Routine 02/02/2024 Visit for screening mammogram HM DIABETES EYE EXAM Routine 07/08/2023 6:16 PM SHALLOT PACKER XR DEXA BONE DENSITY AXIAL 1 OR MORE SITES Routine 07/31/2022 from Last 3 Months or Most Recently Relevant to Health Maintenance Results * ABN TEST REFUSAL (06/27/2025 9:54 AM SHALLOT PACKER) SEE NOTE [facility] Comment: Be advised that your patient has indicated on the advance beneficiary notice their decision not to receive the following laboratory tests. As a result, the tests will not be performed. DISCLAIMER, REFERENCE LAB [id number] [facility] Comment: Test Performed at: [facility] [address] [place] [address] Shira Rutherford MD 06/27/2025 9:54 AM SHALLOT PACKER 06/27/2025 9:56 AM SHALLOT PACKER us Otoniel Springer MD CHEMISTRY ORDERABLES Final Re sult [facility] [phone] [facility] [address] * MICROALBUMIN/CREATININE RATIO, RANDOM UR (06/27/2025 9:54 AM SHALLOT PACKER) CREATININE, URINE 127 20 - 275 mg/dL [facility] ALBUMIN, URINE 1.5 See Note: mg/dL [facility] Comment: Reference Range: Reference Range Not established ALB/CREAT RATIO, URINE 12 <30 mg/g creat [facility] Comment: The ADA defines abnormalities in albumin excretion as follows: Albuminuria Category Result (mg/g creatinine) Normal to Mildly increased <30 Moderately increased 30-299 Severely increased > OR = 300 The ADA recommends that at least two of three specimens collected within a 3-6 month period be abnormal before considering a patient to be within a diagnostic category. Test Performed at: [employer] [facility] [address] Shira Rutherford MD Urine URINE SPECIMEN OBTAINED BY CLEAN CATCH PROCEDURE / Unknown 06/27/2025 9:54 AM SHALLOT PACKER 06/27/2025 9:56 AM SHALLOT PACKER Otoniel Springer MD URINE ORDERABLES Final Result Performing Organization Address [facility]/ZIP Co de Phone Number [facility] [phone] [facility] [address] * (ABNORMAL) CBC WITH DIFFERENTIAL (06/27/2025 9:54 AM SHALLOT PACKER) WBC 7.0 3.8 - 10.8 Thousand/u L [facility] RBC 3.62(L) 3.80 - 5.10 Million/uL [facility] HEMOGLOBIN 11.0(L) 11.7 - 15.5 g/dL [facility] HEMATOCRIT 34.6(L) 35.9 - 46.0 % [facility] MCV 95.6 81.4 - 101.7 fL [facility] MCH 30.4 27.0 - 33.0 pg [facility] MCHC 31.8 31.6 - 35.4 g/dL [facility] Comment: For adults, a slight decrease in the calculated MCHC value (in the range of 30 to 32 g/dL) is most likely not clinically significant; however, it should be interpreted with caution in correlation with other red cell parameters and the patient's clinical condition. RDW 11.9 11.0 - 15.0 % [facility] PLATELETS 253 140 - 400 Thousand/u L [facility] MPV 12.0 7.5 - 12.5 fL [facility] NEUTROPHIL ABSOLUTE 4,501 1,500 - 7,800 cells/uL [facility] LYMPHOCYTE ABSOLUTE 1,715 850 - 3,900 cells/uL [facility] MONOCYTE ABSOLUTE 609 200 - 950 cells/uL [facility] EOSINOPHIL ABSOLUTE 147 15 - 500 cells/uL [facility] BASOPHILS ABSOLUTE 28 0 - 200 cells/uL [facility] NEUTROPHIL 64.3 % [facility] LYMPHOCYTES 24.5 % [facility] MONOCYTE 8.7 % [facility] EOSINOPHILS 2.1 % [facility] BASOPHILS 0.4 % [facility] Comment: Test Performed at: [facility] [address] [place] [address] Shira Rutherford MD Blood 06/27/2025 9:54 AM SHALLOT PACKER 06/27/2025 9:56 AM SHALLOT PACKER us Otoniel Springer MD HEMATOLOGY ORDERABLES Final R esult [facility] [phone] [facility] [address] [place] [address] * VITAMIN D 25 HYDROXY (06/27/2025 9:54 AM SHALLOT PACKER) VITAMIN D, 25 OH, TOTAL 67 30 - 100 ng/mL [facility] Comment: Vitamin D Status 25-OH Vitamin D: Deficiency: <20 ng/mL Insufficiency: 20 - 29 ng/mL Optimal: > or = 30 ng/mL For 25-OH Vitamin D testing on patients on D2-supplementation and patients for whom quantitation of D2 and D3 fractions is required, the [facility](TM) 25-OH VIT D, (D2,D3), LC/MS/MS is recommended: order code 29482 (patients >2yrs). See Note 1 Note 1 For additional information, please refer to http://education.Tradier/faq/PGK708 (This link is being provided for informational/ educational purposes only.) Test Performed at: [facility] [address] Shira Rutherford MD Blood 06/27/2025 9:54 AM SHALLOT PACKER 06/27/2025 9:56 AM SHALLOT PACKER Otoniel Springer MD CHEMISTRY ORDERABLES Final Re sult [facility] [phone] [facility] [address] [address] * TSH (06/27/2025 9:54 AM SHALLOT PACKER) Pathologist [facility] TSH 2.64 0.40 - 4.50 mIU/L [facility] Comment: Test Performed at: [facility] [address] Shira Rutherford MD Blood 06/27/2025 9:54 AM SHALLOT PACKER 06/27/2025 9:56 AM SHALLOT PACKER Otoniel Springer MD CHEMISTRY ORDERABLES Final Re sult [facility] [phone] [address] * VITAMIN B12 LEVEL (06/27/2025 9:54 AM SHALLOT PACKER) VITAMIN B12 726 200 - 1100 pg/mL [facility] Comment: Test Performed at: [facility] [address] [facility] [place] [address] Shira Rutherford MD Blood 06/27/2025 9:54 AM SHALLOT PACKER 06/27/2025 9:56 AM SHALLOT PACKER us Otoniel Springer MD CHEMISTRY ORDERABLES Final Re sult [facility] [phone] [facility] [place] [address] * (ABNORMAL) LIPID PANEL (06/27/2025 9:54 AM SHALLOT PACKER) Pathologist [facility] CHOLESTEROL 130 <200 mg/dL [facility] HDL 49(L) > OR = 50 mg/dL [facility] TRIGLYCERIDE 148 <150 mg/dL [facility] LDL CALCULATED 58 mg/dL (calc) [facility] Comment: Reference range: <100 Desirable range <100 mg/dL for primary prevention; <70 mg/dL for patients with CHD or diabetic patients with > or = 2 CHD risk factors. LDL-C is now calculated using the Donavan-Sarah calculation, which is a validated novel method providing better accuracy than the Friedewald equation in the estimation of LDL-C. Donavan JANG et al. TREY. 2013;310(19): 3177-2934 (http://education.Tradier/faq/TVI152) CHOL/HDL RATIO 2.7 <5.0 (calc) [facility] NON-HDL CHOLESTEROL 81 <130 mg/dL (calc) [facility] Comment: For patients with diabetes plus 1 major ASCVD risk factor, treating to a non-HDL-C goal of <100 mg/dL (LDL-C of <70 mg/dL) is considered a therapeutic option. Test Performed at: [facility] [address] [address] Shira Rutherford MD Blood 06/27/2025 9:54 AM SHALLOT PACKER 06/27/2025 9:56 AM SHALLOT PACKER us Otoniel Springer MD CHEMISTRY ORDERABLES Final Re sult [facility] [phone] [facility] [address] [place] [address] * (ABNORMAL) COMPREHENSIVE METABOLIC PANEL (06/27/2025 9:54 AM SHALLOT PACKER) GLUCOSE 120(H) 65 - 99 mg/dL [facility] Comment: Fasting reference interval For someone without known diabetes, a glucose value between 100 and 125 mg/dL is consistent with prediabetes and should be confirmed with a follow-up test. BUN 46(H) 7 - 25 mg/dL [facility] CREATININE 2.13(H) 0.60 - 0.95 mg/dL [facility] GFR 22(L) > OR = 60 mL/min/1.7 3m2 [facility] BUN/CREAT RATIO 22 6 - 22 (calc) [facility] SODIUM 142 135 - 146 mmol/L [facility] POTASSIUM 4.3 3.5 - 5.3 mmol/L [facility] CHLORIDE 102 98 - 110 mmol/L [facility] CO2 29 20 - 32 mmol/L [facility] CALCIUM 9.5 8.6 - 10.4 mg/dL [facility] TOTAL PROTEIN 7.3 6.1 - 8.1 g/dL [facility] ALBUMIN 4.4 3.6 - 5.1 g/dL [facility] GLOBULIN 2.9 1.9 - 3.7 g/dL (calc) [facility] ALBUMIN/GLOBULIN RATIO 1.5 1.0 - 2.5 (calc) [facility] BILIRUBIN TOTAL 1.2 0.2 - 1.2 mg/dL [facility] ALKALINE PHOSPHATASE 87 37 - 153 U/L [facility] AST 27 10 - 35 U/L [facility] ALT 32(H) 6 - 29 U/L [facility] Comment: Test Performed at: [facility] [address] [place] [address] Shira Rutherford MD Blood 06/27/2025 9:54 AM SHALLOT PACKER 06/27/2025 9:56 AM SHALLOT PACKER us Otoniel Springer MD CHEMISTRY ORDERABLES Final Re sult Performing Organization Address City/[facility]/ZIP Co de Phone Number [facility] [phone] [facility] [address] [place] [address] * WI REM INTERROG PM/LDLS PM <90 D PHYS/QHP, WI REM INTERROG PM/LDLS PM/IDS <90 D TECH REVIEW (06/04/2025 4:23 AM SHALLOT PACKER) 06/04/2025 4:23 AM SHALLOT PACKER Narrative INTERFACE SYSTEM - 06/05/2025 9:14 AM SHALLOT PACKER Marcela Bass MD 06/24/2025 6:45 PM Remote Latitude Transmission Appropriate Dual Chamber Pacemaker function Presenting Rhythm: ApVp Battery: 7.5 years PACKAGE WINDER 100% Since 12/13/2024 2 ATR episodes, burden <1%. All lasting <1 min. No ventricular arrhythmias noted. Per [facility], Patient takes metoprolol. Results sent via Sharethrough ADDENDUM: Device interrogation reviewed Agree with above Marcela Bass MD, [facility] 06/24/2025 6:45 PM us Marcela Bass MD CARDIAC SERVICES ORDERABLES Edited Result - Final Performing Organization Address City/[facility]/ZIP Co de Phone Number INTERFACE SYSTEM Refer to clinic/hospital department * (ABNORMAL) HEMOGLOBIN A1C (12/14/2024 10:45 AM CDT) HEMOGLOBIN A1C 7.6(H) <5.7 % of total Hgb [facility] Comment: For someone without known diabetes, [...] children. ESTIMATED AVERAGE GLUCOSE (MG/DL) 171 mg/dL [facility] ESTIMATED AVERAGE GLUCOSE (MMOL/L) 9.5 mmol/L [facility] Comment: FASTING:YES FASTING: YES Test Performed at: [place] [address] [place] [address] Shira Rutherford Blood 12/14/2024 10:4 5 AM CDT 12/14/2024 10:47 AM CDT Otoniel Springer MD CHEMISTRY ORDERABLES Final Re sult [facility] [phone] [place] [address] [place] [address] * MAMMO SCREEN BILAT W OR WO CAD (02/02/2024) Anatomical Region Laterality Modality Breast Bilateral Mammography Otoniel Springer MD MAMMO ORDERABLES Final Result * HM DIABETES EYE EXAM (07/08/2023 6:16 PM SHALLOT PACKER) us Abstract Provider HEALTH MAINTENANCE Edited Resu lt - Final [facility] CLIA# [id number] [facility] [address] [place] [address] * XR DEXA BONE DENSITY AXIAL 1 OR MORE SITES (07/31/2022) T-SCORE FEMUR [facility] T-SCORE FEMUR (LEFT) [facility] T-SCORE FEMUR (RIGHT) [facility] T-SCORE FEMUR NECK [facility] T-SCORE FEMORAL NECK (LEFT) [facility] [place] T-SCORE FEMORAL NECK (RIGHT) [facility] T-SCORE HEEL (LEFT) [facility] T-SCORE HEEL (RIGHT) [facility] [place] T-SCORE HIP [facility] [place] T-SCORE HIP (LEFT) [facility] [facility] T-SCORE HIP (RIGHT) [facility] T-SCORE WRIST [facility] T-SCORE WRIST (LEFT) [facility] T-SCORE WRIST (RIGHT) [facility] T-SCORE SPINE [facility] Anatomical Region Laterality Modality Other us Abstract Provider DIAGNOSTIC IMAGING ORDERABLES Final Result from Last 3 Months or Most Recently Relevant to Health Maintenance Insurance MEDICARE PART A AND B [facility] Medicare Part D RX [facility] Medicare Part D Advance Directives For more information, please contact: [phone] Documents on File Type Date Recorded Patient Manufacturing Weaver Expl anation Advance Directive Living Will 05/16/2019 3:44 PM Advance Directive Living Will Advance Directive POA 04/05/2018 11:10 AM A dvance Directive POA Advance Directive Living Will 04/05/2018 11:10 AM Advance Directive Living Will * Full Code (Latest Code Status on File) Date Activated Date Inactivated Comments 09/04/2024 9:57 AM 09/04/2024 6:40 PM * Full Code Date Activated Date Inactivated Comments 02/25/2017 6:21 PM 02/26/2017 4:32 PM Care Teams Life Science Technical Officer Relationship Specialty Start Date End Date Otoniel Springer MD [address] [place] [phone] PCP - General 11/24/06
--- OUTSIDE RECORDS SUMMARY | 2025-06-29 18:16 | XMS_ITS | Encounter Summary ---
Author Organization [facility] Address [address] [place] [address] Care Team Providers Care Steam Hoist Operator Name Role Phone Otoniel Springer MD Primary Care Provider Encounter Details Date Type Department Care Team ([facility] Contact Info) Description 01/17/2007 Outpatient Historical [facility] Internal Medicine [address] [address] Otoniel Springer MD [address] [place] [address] [address] [place] [address] Social History Tobacco Use Types Packs/Day Years Used Date Smoking Tobacco: Never Assessed Comments Unknown Sex and Gender Information Value Date Recorded Sex Assigned at Not on file Legal Sex Female 3:30 AM FIELD ASSEMBLY SUPERVISOR Gender Identity Not on file Sexual Orientation Not on file documented as of this encounter Last Filed Vital Signs Vital Sign Reading Time Taken Comments Blood Pressure 130/70 01/17/2007 1:15 PM CDT Pulse - - Temperature - - Respiratory Rate - - Oxygen Saturation - - Inhaled Oxygen Concentration - - Weight 68 kg (150 lb) 01/17/2007 1:15 PM CDT Height - - Body Mass Index 26.15 10/02/2003 10:00 AM FIELD ASSEMBLY SUPERVISOR documented in this encounter Plan of Treatment Upcoming Encounters Date Type Department Care Team (Late Contact Info) Description 07/10/2025 10:40 AM FIELD ASSEMBLY SUPERVISOR Office Visit [facility] Primary Care [address] [place] [address] Otoniel Springer MD [address] [place] [address] [place] [address] [place] [phone] 10/01/2025 8:45 AM FIELD ASSEMBLY SUPERVISOR Procedure visit [facility] HEART AND VASCULAR EP AT [address] [place] [address] 12/17/2025 10:30 AM CDT Procedure visit [facility] HEART AND VASCULAR EP AT [address] [place] [address] 12/17/2025 11:00 AM CDT Office Visit [facility] HEART AND VASCULAR EP AT [address] [place] [address] Ebony Miller, WILLIAM [address] [place] [address] [address] [place] [address] 04/01/2026 10:00 AM CDT Office Visit [facility] Heart and Vascular At [address] [place] [address] Evan Patterson MD [address] [place] [address] [address] [place] [address] documented as of this encounter Visit Diagnoses Not on filedocumented in this encounter Care Teams Steam Hoist Operator Relationship Specialty Start Date End Date Otoniel Springer MD [address] [place] [address] [address] [place] [phone] PCP - General 11/24/06 documented as of this encounter
--- OUTSIDE RECORDS SUMMARY | 2025-06-29 18:16 | XMS_ITS | Encounter Summary ---
Author Organization [facility] Address [address] [place] [address] Care Team Providers Care Tetryl Screen Operator Name Role Phone Otoniel Springer MD Primary Care Provider [phone] Encounter Details Date Type Department Care Team (Late st Contact Info) Description 05/04/2007 Outpatient Historical [facility] Vasu Worley MD [address] [place] [address] [address] [place] [address] Other Follow-Up Examination (Primary Dx) Social History Tobacco Use Types Packs/Day Years Used Date Smoking Tobacco: Never Assessed Comments Unknown Sex and Gender Information Value Date Recorded Sex Assigned at Not on file Legal Sex Female 3:30 AM TELEPHONER Gender Identity Not on file Sexual Orientation Not on file documented as of this encounter Plan of Treatment Upcoming Encounters Date Type Department Care Team (Late Contact Info) Description 07/10/2025 10:40 AM TELEPHONER Office Visit [facility] Primary Care [address] [place] [address] Otoniel Springer MD [address] [place] [address] [address] [place] [address] 10/01/2025 8:45 AM TELEPHONER [facility] AT [place] [address] [facility] [address] [place] [address] 12/17/2025 10:30 AM CDT Procedure [facility] AT [place] [address] [facility] [address] [place] [address] 12/17/2025 11:00 AM CDT Office [facility] AT [place] [address] [facility] [address] [place] [address] Ebony Miller NP [facility] [address] [place] [address] 04/01/2026 10:00 AM CDT Office Visit [facility] Heart and Vascular At [address] [place] [address] Evan Patterson MD [facility] [address] [place] [address] documented as of this encounter Visit Diagnoses Diagnosis Other follow-up examination(V67.59)- Primary Other follow-up examination documented in this encounter Care Teams Tetryl Screen Operator Relationship Specialty Start Date End Date Otoniel Springer MD [address] [place] [address] [place] [phone] PCP - General 11/24/06 documented as of this encounter
--- OUTSIDE RECORDS SUMMARY | 2025-06-29 18:16 | XMS_ITS | Encounter Summary ---
Author Organization [facility] Address [address] [place] [address] Care Team Providers Care Annealing Furnace Operator Name Role Phone Otoniel Springer MD Primary Care Provider [phone] Encounter Details Date Type Department Care Team (Late Contact Info) Description 04/08/2004 Outpatient Historical [facility] Internal Medicine [address] [address] Otoniel Springer MD [address] [place] [address] [address] [place] [address] Social History Tobacco Use Types Packs/Day Years Used Date Smoking Tobacco: Never Assessed Comments Unknown Sex and Gender Information Value Date Recorded Sex Assigned at Not on file Legal Sex Female 3:30 AM BUSINESS PERFORMANCE MANAGER Gender Identity Not on file Sexual Orientation Not on file documented as of this encounter Last Filed Vital Signs Vital Sign Reading Time Taken Comments Blood Pressure 112/70 04/08/2004 9:45 AM CDT Pulse - - Temperature - - Respiratory Rate - - Oxygen Saturation - - Inhaled Oxygen Concentration - - Weight 64.9 kg (143 lb) 04/08/2004 9:45 AM CDT Height - - Body Mass Index 24.93 10/02/2003 10:00 AM BUSINESS PERFORMANCE MANAGER documented in this encounter Plan of Treatment Upcoming Encounters Date Type Department Care Team (Late Contact Info) Description 07/10/2025 10:40 AM BUSINESS PERFORMANCE MANAGER Office Visit [facility] Primary Care [address] [place] [phone] Otoniel Springer MD [address] [place] [address] [address] [place] [phone] 10/01/2025 8:45 AM BUSINESS PERFORMANCE MANAGER Procedure visit [facility] HEART AND VASCULAR EP AT [address] [place] [address] 12/17/2025 10:30 AM CDT Procedure visit [facility] HEART AND VASCULAR EP AT [address] [place] [address] 12/17/2025 11:00 AM CDT Office Visit [facility] HEART AND VASCULAR EP AT [address] [place] [address] Ebony Miller, WILLIAM [address] [place] [address] [address] [place] [address] 04/01/2026 10:00 AM CDT Office Visit [facility] Heart and Vascular At [address] [place] [address] Evan Patterson MD [address] [place] [address] [place] [address] documented as of this encounter Visit Diagnoses Not on filedocumented in this encounter Care Teams Annealing Furnace Operator Relationship Specialty Start Date End Date Otoniel Springer MD [address] [place] [address] [address] [place] [phone] PCP - General 11/24/06 documented as of this encounter
--- OUTSIDE RECORDS SUMMARY | 2025-06-29 18:16 | XMS_ITS | Encounter Summary ---
Author Organization [facility] Address [address] [place] [address] Care Team Providers Care Analytical Statistician Name Role Phone Otoniel Springer MD Primary Care Provider [phone] Encounter Details Date Type Department Care Team (Late st Contact Info) Description 10/26/2005 Orders Only [facility] Internal Medicine [address] [address] Otoniel Springer MD [address] [place] [address] Social History Tobacco Use Types Packs/Day Years Used Date Smoking Tobacco: Never Assessed Comments Unknown Sex and Gender Information Value Date Recorded Sex Assigned at Not on file Legal Sex Female 3:30 AM ACCESS SERVICES ASSISTANT Gender Identity Not on file Sexual Orientation Not on file documented as of this encounter Plan of Treatment Upcoming Encounters Date Type Department Care Team (Late st Contact Info) Description 07/10/2025 10:40 AM ACCESS SERVICES ASSISTANT Office Visit [facility] Primary Care [address] [place] [address] Otoniel Springer MD [address] [place] [address] [address] [place] [address] 10/01/2025 8:45 AM ACCESS SERVICES ASSISTANT Procedure visit [facility] HEART AND VASCULAR EP AT [address] [place] [address] 12/17/2025 10:30 AM CDT Procedure visit [facility] HEART AND VASCULAR EP AT [address] [place] [address] 12/17/2025 11:00 AM CDT Office Visit [facility] HEART AND VASCULAR EP AT [address] [place] [address] Ebony Miller, WILLIAM [address] [place] [address] 2014 [place] [address] 04/01/2026 10:00 AM CDT Office Visit [facility] Heart and Vascular At [address] [place] [address] Evan Patterson MD [address] [place] [address] [address]29 [place] [address] documented as of this encounter Visit Diagnoses Not on filedocumented in this encounter Care Teams Analytical Statistician Relationship Specialty Start Date End Date Otoniel Springer MD [address] [place] [address] [place] [address] PCP - General 11/24/06 documented as of this encounter
--- OUTSIDE RECORDS SUMMARY | 2025-06-29 18:16 | XMS_ITS | Encounter Summary ---
Author Organization [facility] Address [address] [place] [address] Care Team Providers Care Inside Account Representative Name Role Phone Otoniel Springer MD Primary Care Provider [phone] Encounter Details Date Type Department Care Team (Late st Contact Info) Description 05/06/2004 Outpatient Historical [facility] Internal Medicine [address] [address] Otoniel Springer MD [address] [place] [address] Social History Tobacco Use Types Packs/Day Years Used Date Smoking Tobacco: Never Assessed Comments Unknown Sex and Gender Information Value Date Recorded Sex Assigned at Not on file Legal Sex Female 3:30 AM JUNIOR DATABASE ADMINISTRATOR Gender Identity Not on file Sexual Orientation Not on file documented as of this encounter Plan of Treatment Upcoming Encounters Date Type Department Care Team (Late st Contact Info) Description 07/10/2025 10:40 AM JUNIOR DATABASE ADMINISTRATOR Office Visit [facility] Primary Care [address] [place] [address] Otoniel Springer MD [address] [place] [address] [address] [place] [address] 10/01/2025 8:45 AM JUNIOR DATABASE ADMINISTRATOR Procedure visit [facility] HEART AND VASCULAR EP AT [address] [place] [address] 12/17/2025 10:30 AM CDT Procedure visit [facility] HEART AND VASCULAR EP AT [address] [place] [address] 12/17/2025 11:00 AM CDT Office Visit [facility] HEART AND VASCULAR EP AT [address] [place] [address] Ebony Miller, WILLIAM [address] [place] [address] 2014 [place] [address] 04/01/2026 10:00 AM CDT Office Visit [facility] Heart and Vascular At [address] [place] [address] Evan Patterson MD [address] [place] [address] 20[address] [place] [address] documented as of this encounter Visit Diagnoses Not on filedocumented in this encounter Care Teams Inside Account Representative Relationship Specialty Start Date End Date Otoniel Springer MD [address] [place] [address] [place] [address] PCP - General 11/24/06 documented as of this encounter
--- OUTSIDE RECORDS SUMMARY | 2025-06-29 18:16 | XMS_ITS | Encounter Summary ---
Author Organization [facility] Address [address] [place] [address] Care Team Providers Care Steel Shot Header Operator Name Role Phone Otoniel Springer MD Primary Care Provider [phone] Encounter Details Date Type Department Care Team (Late st Contact Info) Description 08/15/2007 Orders Only [facility] Internal Medicine [address] [address] Otoniel Springer MD [address] [place] [address] Social History Tobacco Use Types Packs/Day Years Used Date Smoking Tobacco: Never Assessed Comments Unknown Sex and Gender Information Value Date Recorded Sex Assigned at Not on file Legal Sex Female 3:30 AM ARMATURE COIL WINDER Gender Identity Not on file Sexual Orientation Not on file documented as of this encounter Progress Notes * Otoniel Springer MD - 12/14/2007 6:40 PM CDT WEIGHT: 148lbs BLOOD PRESSURE: 130/70 Right Arm Sitting NURSE NAME: Izabel Cotton R TOBACCO USE Patient does not currently use tobacco. CHIEF COMPLAINT Patient here for follow up hyperlipidemia, hypertension. 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 The patient`s most recent labs reviewed. 401.9-HYPERTENSION, UNSPECIFIED The patient denies chest pain, shortness of breath, dyspnea on exertion, pedal edema, or headache. 436-ILL DEFINED CEREBROVASCULAR DISEASE(NOT STROKE) The neurological status is stable. The patient denies loss of vision, transient ischemic symptoms, sudden weakness or numbness, difficulty swallowing, or confusion. 530.81-GASTROESOPHAGEAL REFLUX (GERD) The patient's dyspeptic symptoms remain stable. 790.21-ABNORMAL FASTING BLOOD GLUCOSE stable ROS: ENDOCRINE: No heat or cold intolerance, no excessive thirst. CARDIAC: No chest pain, palpitations, orthopnea, dyspnea on exertion, or paroxysmal nocturnal dyspnea. RESPIRATORY: No dyspnea, cough, hemoptysis or wheezing. : No frequency, urgency, hematuria or dysuria. GI: No abdominal pain, nausea, vomiting, diarrhea, constipation, melena, or hematochezia. PAST MEDICAL HISTORY: reviewed FAMILY HISTORY: neg lymphoma SOCIAL HISTORY: reviewed TOBACCO USE: Has no significant smoking history. DISCUSSED SMOKING: neg. PHYSICAL EXAMINATION: CONSTITUTIONAL: GENERAL APPEARANCE: Healthy appearing patient in no distress. EARS, NOSE, MOUTH AND THROAT: EARS: Tympanic membranes shiny without retraction. Canals unremarkable. Hearing grossly normal. ORAL: Inspection of gums, lips, palate, and teeth normal. No scars, lesions, or masses. Oral mucosaunremarkable with non-inflamed posterior pharynx. NECK/THYROID: Trachea midline. No thyroid enlargement, tenderness, or mass. No supraclavicular or cervical adenopathy. RESPIRATORY: Clear to auscultation and percussion. Normal respiratory effort. CARDIOVASCULAR: CARDIAC: Regular rhythm. No murmurs, rubs, or gallops. ARTERIAL: No aortic bruits. EDEMA/VARICOSITIES OF EXTREMITIES: No edema or varicosities. GASTROINTESTINAL: ABDOMEN: Soft, non-tender, without masses. Bowel sounds active. LIVER/SPLEEN/KIDNEY: No hepatosplenomegaly, tenderness or nodularity. Kidneys not palpable. 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 add lab, worse LAB ORDERS: today Order number: [id number] Test Ordered: FERRITIN 1715 Order number: [id number] Test Ordered: VITAMIN B12 LEVEL 1719 401.9-HYPERTENSION, UNSPECIFIED cont med LAB ORDERS: 3 mo Order number: [id number] Test Ordered: CBC W/ DIFFERENTIAL 3150 Order number: [id number] Test Ordered: COMPREHENSIVE METABOLIC PANEL & GFR 1112 Order number: [id number] Test Ordered: LIPID PANEL 1078 436-ILL DEFINED CEREBROVASCULAR DISEASE(NOT STROKE) stable PREVENTIVE COUNSELING The patient was counseled regarding diet, regular sustained exercise for at least 30 minutes 3-4 times per week, the proper use of sunscreen and protective clothing. Patient Education: Risks, benefits, and possible side effects of medication(s) were reviewed with the patient. The patient was allowed to ask questions to stated satisfaction. RETURN VISIT : Patient instructed to return in 3 months. Electronically Signed by: Otoniel Springer MD on Wednesday, August 15, 2007 documented in this encounter Plan of Treatment Upcoming Encounters Date Type Department Care Team (Late st Contact Info) Description 07/10/2025 10:40 AM ARMATURE COIL WINDER Office Visit [facility] Primary Care [place] [address] [place] [address] Otoniel Springer MD [address] [place] [address] [address] [place] [address] 10/01/2025 8:45 AM ARMATURE COIL WINDER Procedure visit [facility] HEART AND VASCULAR EP AT [address] [place] [address] 12/17/2025 10:30 AM CDT Procedure visit [facility] HEART AND VASCULAR EP AT [address] [place] [address] 12/17/2025 11:00 AM CDT Office Visit [facility] HEART AND VASCULAR EP AT [address] [place] [address] Ebony Miller, WILLIAM [address] [place] [address] 2014 [place] [address] 04/01/2026 10:00 AM CDT Office Visit [facility] Heart and Vascular At [facility] [address] [place] [address] Evan Patterson MD [address] [facility] [place] [address] documented as of this encounter Visit Diagnoses Not on filedocumented in this encounter Care Teams Steel Shot Header Operator Relationship Specialty Start Date End Date Otoniel Springer MD [address] [place] [address] [place] [address] PCP - General 11/24/06 documented as of this encounter
--- OUTSIDE RECORDS SUMMARY | 2025-06-29 18:16 | XMS_ITS | Encounter Summary ---
Author Organization [facility] Address [address] [place] [address] Care Team Providers Care Bending Roll Operator Name Role Phone Otoniel Springer MD Primary Care Provider Reason for Visit * Reason Onset Date Comments Results 08/19/2022 Encounter Details Date Type Department Care Team ([facility] Contact Info) Description 08/19/2022 Telephone [facility] Primary Care [address] [place] [address] Otoniel Springer MD [address] [place] [address] [address] [place] [address] Results Social History Tobacco Use Types Packs/Day Years [...] file 07/10/2020 How often do you attend evangelical or sabianist serv ices? Patient declined 07/10/2020 Do you belong to any clubs o r organizations such as evangelical groups, unions, fraternal or athletic groups, or [...] of Transportation (Non-Medical) Not on file 07/28/2021 Education Answer Date Recorded What is the highest level of school you have completed or the highest degree you have received? High school graduate 07/10/2020 Comments No Sex and Gender Information Value Date Recorded Sex Assigned at Not on file Legal Sex Female 3:30 AM BALL TRUING MACHINE OPERATOR Gender Identity Not on file Sexual Orientation Not on file Occupation Industry Job Start Date Job End Date retired Not on file Not on file Not on file documented as of this encounter Miscellaneous Notes * Telephone Encounter - Lashon Newman - 08/21/2022 1:45 PM CST Informed pt of results on vm TRUING MACHINE OPERATOR * Telephone Encounter - Otoniel Springer MD - 08/19/2022 4:14 PM CST Echocardiogram is stable heart function remains normal, good news Bone density similar to 2 yrs ago with Osteopenia--slight bone weakness, no urgency about treatmentwill review at next appt TRUING MACHINE OPERATOR * Telephone Encounter - Nakita Nolasco - 08/19/2022 1:23 PM CST Request for Results Caller: Aaliyah Peck On PHI: Yes Test Name: XR DEXA BONE DENSITY AXIAL 1 OR MORE SITES Patient will also want the results of her Echo that was done on 07.31.22 Were results released by Agent? No Does patient request a call-back by clinical staff? Yes Call back number: [phone] (home) Home Phone Work Phone TRUING MACHINE OPERATOR documented in this encounter Plan of Treatment Upcoming Encounters Date Type Department Care Team (Late st Contact Info) Description 07/10/2025 10:40 AM BALL TRUING MACHINE OPERATOR Office Visit [facility] Primary Care [facility] [address] [place] [address] [address] [place] [address] Otoniel Springer MD [address] [place] [address] [address] [place] [address] 10/01/2025 8:45 AM BALL TRUING MACHINE OPERATOR Procedure visit [facility] HEART AND VASCULAR EP AT [address] [place] [address] 12/17/2025 10:30 AM CDT Procedure visit [facility] HEART AND VASCULAR EP AT [address] [place] [address] 12/17/2025 11:00 AM CDT Office Visit [facility] HEART AND VASCULAR EP AT [address] [place] [address] Ebony Miller NP [address] [place] [address] [address] [place] [address] 04/01/2026 10:00 AM CDT Office Visit [facility] Heart and Vascular At [address] [place] [address] Evan Patterson MD [address] [place] [address] [address] [place] [address] documented as of this encounter Visit Diagnoses Not on filedocumented in this encounter Care Teams Bending Roll Operator Relationship Specialty Start Date End Date Otoniel Springer MD [address] [id number] PCP - General 11/24/06 documented as of this encounter
--- OUTSIDE RECORDS SUMMARY | 2025-06-29 18:16 | XMS_ITS | Encounter Summary ---
Author Organization [facility] Address [address] [place] [address] Care Team Providers Care Tool Straightener Name Role Phone Otoniel Springer MD Primary Care Provider [phone] Encounter Details Date Type Department Care Team (Late st Contact Info) Description 05/06/[address] [facility] Internal Medicine [address] [address] Otoniel Springer MD [address] [place] [address] Social History Tobacco Use Types Packs/Day Years Used Date Smoking Tobacco: Never Assessed Comments Unknown Sex and Gender Information Value Date Recorded Sex Assigned at Not on file Legal Sex Female 3:30 AM GENERAL MERCHANDISE SALESPERSON Gender Identity Not on file Sexual Orientation Not on file documented as of this encounter Plan of Treatment Upcoming Encounters Date Type Department Care Team (Late st Contact Info) Description 07/10/2025 10:40 AM GENERAL MERCHANDISE SALESPERSON Office Visit [facility] Primary Care [address] [place] [address] Otoniel Springer MD [address] [place] [address] [address] [place] [address] 10/01/2025 8:45 AM GENERAL MERCHANDISE SALESPERSON Procedure visit [facility] HEART AND VASCULAR EP AT [address] [place] [address] 12/17/2025 10:30 AM CDT Procedure visit [facility] HEART AND VASCULAR EP AT [address] [place] [address] 12/17/2025 11:00 AM CDT Office Visit [facility] HEART AND VASCULAR EP AT [address] [place] [address] Ebony Miller, WILLIAM [address] [place] [address] [address] [place] [address] 04/01/2026 10:00 AM CDT Office Visit [facility] Heart and Vascular At [address] [place] [address] Evan Patterson MD [address] [place] [address] [address] [place] [address] documented as of this encounter Visit Diagnoses Not on filedocumented in this encounter Care Teams Tool Straightener Relationship Specialty Start Date End Date Otoniel Springer MD [address] [place] [address] [place] [address] PCP - General 11/24/06 documented as of this encounter
--- OUTSIDE RECORDS SUMMARY | 2025-06-29 18:16 | XMS_ITS | Encounter Summary ---
Author Organization [facility] Address [address] [place] [address] Care Team Providers Care Cooker Chip Name Role Phone Otoniel Springer MD Primary Care Provider [phone] Encounter Details Date Type Department Care Team (Latest Contact Info) Description 11/30/2006 Outpatient Historical [facility] [address] [facility] [address] [place] [address] Calculus of GB w/ Other Cystitis (Primary Dx) Social History Tobacco Use Types Packs/Day Years Used Date Smoking Tobacco: Never Assessed Comments Unknown Sex and Gender Information Value Date Recorded Sex Assigned at Not on file Legal Sex Female 3:30 AM CLOSING SPECIALIST Gender Identity Not on file Sexual Orientation Not on file documented as of this encounter Plan of Treatment Upcoming Encounters Date Type Department Care Team (Late st Contact Info) Description 07/10/2025 10:40 AM CLOSING SPECIALIST Office Visit [facility] Primary Care [address] [place] [address] Otoniel Springer MD [address] [facility] [address] [place] [address] 10/01/2025 8:45 AM CLOSING SPECIALIST Procedure visit [facility] HEART AND VASCULAR EP AT [place] [address] [facility] [address] [place] [address] 12/17/2025 10:30 AM CDT Procedure visit [facility] HEART AND VASCULAR EP AT [facility] [address] [facility] [address] [place] [address] 12/17/2025 11:00 AM CDT Office Visit [facility] HEART AND VASCULAR EP AT [facility] [address] [place] [address] Ebony Miller NP [address] [place] [address] 04/01/2026 10:00 AM CDT Office Visit [facility] Heart and Vascular At [place] [address] [facility] [address] [place] [address] Evan Patterson MD [address] [facility] [address] [place] [address] documented as of this encounter Procedures Procedure Name Priority Date/Time Associated Diagnosis Comments BASIC METABOLIC PANEL PLUS Routine 11/29/2006 9:10 AM CDT HEMOGLOBIN AND HEMATOCRIT Routine 11/29/2006 9:10 AM CDT CBC WITH DIFFERENTIAL Routine 11/29/2006 9:10 AM CDT CBC WITH DIFFERENTIAL Routine 11/29/2006 9:10 AM CDT BASIC METABOLIC PANEL Routine 11/29/2006 9:10 AM CDT documented in this encounter Results * CBC WITH DIFFERENTIAL (11/29/2006 9:10 AM CDT) NEUTROPHILS 69 45 - 70 % INTERFAC E SYSTEM LYMPHOCYTES 22 16 - 45 % INTERFAC E SYSTEM MONOCYTES 7 3 - 13 % INTERFACE SYSTEM EOSINOPHILS 2 0 - 7 % INTERFAC E SYSTEM BASOPHILS 0 0 - 2 % INTERFACE SYSTEM NEUTROPHIL ABSOLUTE 3.99 1.90 - 7.00 K/uL INTERFACE SYSTEM LYMPHOCYTE ABSOLUTE 1.25 0.70 - 4.50 K/uL INTERFACE SYSTEM MONOCYTE ABSOLUTE 0.42 0.10 - 1.30 K/uL INTERFACE SYSTEM EOSINOPHIL ABSOLUTE 0.10 0.00 - 0.70 K/uL INTERFACE SYSTEM BASOPHILS ABSOLUTE 0.01 0.00 - 0.20 K/uL INTERFACE SYSTEM 11/29/2006 9:10 AM CDT Fadia Betancourt MD HEMATOLOGY ORDERABLES Edited Performing Organization Address City/[facility] de Phone Number INTERFACE SYSTEM Refer to clinic/hospital department * CBC WITH DIFFERENTIAL (11/29/2006 9:10 AM CDT) WBC 5.8 4.0 - 9.8 K/uL INTERFACE SYSTEM RBC 3.96 3.90 - 4.90 M/uL INTERFACE SYSTEM HEMOGLOBIN 12.3 11.8 - 14.8 g/dL INTERFACE SYSTEM HEMATOCRIT 36.3 35.5 - 44.0 % INTERFACE SYSTEM MCV 91.7 82.0 - 99.0 fL INTERFACE SYSTEM MCH 31.1 27.2 - 32.6 pg INTERFACE SYSTEM MCHC 33.9 31.5 - 35.5 % INTERFACE SYSTEM RDW 12.7 11.5 - 14.5 % INTERFACE SYSTEM RDW-STDEV 42.7 37.1 - 48.7 fL INTERFACE SYSTEM PLATELETS 236 140 - 350 K/uL INTERFACE SYSTEM MPV 11.7 9.3 - 12.4 fL INTERFACE SYSTEM 11/29/2006 9:10 AM CDT Fadia Betancourt MD HEMATOLOGY ORDERABLES Edited Performing Organization Address [facility] de Phone Number INTERFACE SYSTEM Refer to clinic/hospital department * (ABNORMAL) BASIC METABOLIC PANEL PLUS (11/29/2006 9:10 AM CDT) ALKALINE PHOSPHATASE 98 35 - 104 U/L INTERFACE SYSTEM AST 20 12 - 32 U/L INTERFACE SYSTEM ALT 25 0 - 31 U/L INTERFACE SYSTEM TOTAL PROTEIN 7.5 6.3 - 8.6 g/dL INTERFACE SYSTEM ALBUMIN 4.2 3.4 - 4.8 g/dL INTERFACE SYSTEM BILIRUBIN TOTAL 1.1(H) 0.2 - 1.0 mg/dL INTERFACE SYSTEM 11/29/2006 9:10 AM CDT us Fadia Betancourt MD CHEMISTRY ORDERABLES Edited Performing Organization Address [facility] de Phone Number INTERFACE SYSTEM Refer to clinic/hospital department * HEMOGLOBIN AND HEMATOCRIT (11/29/2006 9:10 AM CDT) HEMOGLOBIN 12.2 11.8 - 14.8 g/dL INTERFACE SYSTEM HEMATOCRIT 36.1 35.5 - 44.0 % INTERFACE SYSTEM 11/29/2006 9:10 AM CDT Result Nayely Betancourt MD HEMATOLOGY ORDERABLES Edited Performing Organization Address [facility] Phone Number INTERFACE SYSTEM Refer to clinic/hospital department * (ABNORMAL) BASIC METABOLIC PANEL (11/29/2006 9:10 AM CDT) GLUCOSE 114(H) 65 - 99 mg/dL INTERFACE SYSTEM CREATININE 0.86 0.51 - 0.95 mg/dL INTERFACE SYSTEM CALCIUM 9.3 8.4 - 10.2 mg/dL INTERFACE SYSTEM BUN 22(H) 6 - 20 mg/dL INTERFACE SYSTEM SODIUM 143 135 - 145 mmol/L INTERFACE SYSTEM POTASSIUM 4.7 3.5 - 4.9 mmol/L INTERFACE SYSTEM CHLORIDE 105 96 - 108 mmol/L INTERFACE SYSTEM CO2 30 22 - 30 mmol/L INTERFACE SYSTEM GFR, >60 >=60 mL/min/1. 7 sq meter INTERFACE SYSTEM GFR >60 >=60 mL/min/1. 7 sq meter INTERFACE SYSTEM Comment: Estimated GFR rate interpretative information for both Americans and non- Americans is available on the [facility] Intranet at: [email or web address] Select: Lab Policies and Procedures Select: Reference Ranges - GFR 11/29/2006 9:10 AM CDT Result Nayely Betancourt MD CHEMISTRY ORDERABLES Edited Performing Organization Address [facility] Phone Number INTERFACE SYSTEM Refer to clinic/hospital department documented in this encounter Visit Diagnoses Diagnosis Calculus of gallbladder with other cholecystitis, without mention of obstruction- Primary documented in this encounter Care Teams Cooker Chip Relationship Specialty Start Date End Date Otoniel Springer MD [address] [place] [address] PCP - General 11/24/06 documented as of this encounter
--- OUTSIDE RECORDS SUMMARY | 2025-06-29 18:16 | XMS_ITS | Encounter Summary ---
Author Organization [facility] Address [address] [place] [address] Care Team Providers Care Client Services Analyst Name Role Phone Otoniel Springer MD Primary Care Provider Encounter Details Date Type Department Care Team (Late Contact Info) Description 10/11/2007 Outpatient Historical [facility] Glenda Worley MD [address] [place] [address] [address] [place] [address] Social History Tobacco Use Types Packs/Day Years Used Date Smoking Tobacco: Never Assessed Comments Unknown Sex and Gender Information Value Date Recorded Sex Assigned at Not on file Legal Sex Female 3:30 AM UPHOLSTERY TRIMMER Gender Identity Not on file Sexual Orientation Not on file documented as of this encounter Plan of Treatment Upcoming Encounters Date Type Department Care Team (Late Contact Info) Description 07/10/2025 10:40 AM UPHOLSTERY TRIMMER Office Visit [facility] Primary Care [place] [address] [place] [address] Otoniel Springer MD [address] [place] [address] [address] [place] [address] 10/01/2025 8:45 AM UPHOLSTERY TRIMMER Procedure visit [facility] HEART AND VASCULAR EP AT [place] [address] [facility] [address] [place] [address] 12/17/2025 10:30 AM CDT Procedure visit [facility] HEART AND VASCULAR EP AT [facility] [address] [facility] [address] [place] [address] 12/17/2025 11:00 AM CDT Office Visit [facility] HEART AND VASCULAR EP AT [place] [address] [facility] [address] [place] [address] Ebony Miller NP [facility] [address] [facility] [address] [place] [address] 04/01/2026 10:00 AM CDT Office Visit [facility] Heart and Vascular At [address] [place] [address] Evan Patterson MD [address] [place] [address] [address] [place] [address] documented as of this encounter Procedures Procedure Name Priority Date/Time Associated Diagnosis Comments PATHOLOGY Routine 10/11/2007 10:52 AM CDT documented in this encounter Results * PATHOLOGY (10/11/2007 10:52 AM CDT) FINAL REPORT [facility] [address] [place], [place] [address] Patient: AALIYAH IVAN : 1935 Procedure Date: 10/11/2007 Accession Date: 10/11/2007 Case No: [id number] Ordering Dr: GLENDA WORLEY Case types AW, BW, FW, NW and SH are performed by [facility] [place], [place] SURGICAL PATHOLOGY & NON-GYNECOLOGIC CYTOPATHOLOGY REPORT DIAGNOSIS STOMACH, BODY, BIOPSY: - INACTIVE CHRONIC GASTRITIS. - NO EVIDENCE OF MALT LYMPHOMA. Specimen Description: Gastric body. Operative Procedure: EGD. Patient Information/History/Di agnosis: F/U malt lymphoma. Gross: Received in one container labeled Aaliyah Ivan., gastric body biopsy are three bravo tissue fragments, each 0.2 cm in greatest dimension, which are submitted in block A1. [facility]/Z[facility] 10.11.2007 02:38 pm Microscopic: The slides are labeled [id number], Aaliyah Ivan. Sections of the gastric body biopsy show fundic-type mucosa with patchy, very mild chronic inflammation. No atypical lymphoid infiltrates or destructive glandular lesions are present. Immunohistochemical stain for H. pylori is negative. 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 There is no evidence of residual MALToma in the current biopsy. Note on use of immunocytochemistry reagents: This test was developed and its performance characteristic determined by [facility], Department of Laboratory Medicine. It has not been cleared or approved by the U.S. Food and Drug Administration. The FDA has determined that such clearance or approval is not necessary. The test is used for clinical purpose. It should not be regarded as investigational or for research. This laboratory is certified to perform high complexity clinical testing. /[facility] 10.12.2007 01:07 pm Staging Form: No. ELECTRONIC SIGNATURE FOR MELVI PAPPAS MD- 10/13/07 01:36 pm INTERFACE SYSTEM 10/11/2007 10:5 2 AM CDT Glenda Worley MD PATHOLOGY/CYTOLOGY ORDERABL ES Final Result INTERFACE SYSTEM Refer to clinic/hospital department documented in this encounter Visit Diagnoses Not on filedocumented in this encounter Care Teams Client Services Analyst Relationship Specialty Start Date End Date Otoniel Springer MD [address] [place] [address] PCP - General 11/24/06 documented as of this encounter
--- OUTSIDE RECORDS SUMMARY | 2025-06-29 18:16 | XMS_ITS | Encounter Summary ---
Author Organization [facility] Address [address] [place] [address] Care Team Providers Care Cable Lacer Name Role Phone Peña Aldana MD Primary Care Provider [phone] Encounter Details Date Type Department Care Team (Late st Contact Info) Description 10/18/2006 Orders Only [facility] Internal Medicine [address] [address] Peña Aldana MD [address] [place] [address] Social History Tobacco Use Types Packs/Day Years Used Date Smoking Tobacco: Never Assessed Comments Unknown Sex and Gender Information Value Date Recorded Sex Assigned at Not on file Legal Sex Female 3:30 AM MILL HELPER Gender Identity Not on file Sexual Orientation Not on file documented as of this encounter Progress Notes * Peña Aldana MD - 12/23/2007 12:43 PM CDT SPECIALIST REFERRAL REQUEST DATE: OCT 18, 2006 Note created by: Giovanna Valdivia C 02:05 p Patient Name : AALIYAH IVAN [address]: [address] [place] [address]. [address] D.O.B: 1935 SSN: [id number] Parent/Guardian if applicable: Patient Insurance: MEDICARE Policy#: [id number] Group #: Best To Call : HOME. Best Time to Call : ANYTIME. May We Leave Message At That Number : YES, LEAVE MESSAGE. Referring to: GASTROENTEROLOGY Dr. Wren PH: [phone] Reason for referral: ENdoscopy PATIENT DIAGNOSIS: . dyspagia ORDERING PHYSICIAN : PEÑA ALDANA MD PRIORITY OF REFERRAL: AT PATIENT'S CONVENIENCE. OFFICE PRINTING ROLLER HANDLER & PHONE: Giovanna Valdivia C FOR SCHEDULING USE ONLY: FIRST ATTEMPT Date:OCT 20, 2006 Gina Go Y 02:[address] Hall out of town until 10/22/06. Patient said she was in no hurry and would call back after 10/22/06. SECOND ATTEMPT: Date:NOV 01, 2006 Jennifer Allred M 03:[address] Hall prefers to sched his own appts. Faxing to [phone] forappt to be sched directly with pt. Please fax back appt date to [facility] [phone] THIRD ATTEMPT : Date NOV 03, 2006 Jennifer Allred M 08:17 a Entering appt date with Dr. Hall APPOINTMENT DATE : 11/18/2006 Referral number: Medicare NN * Peña Aldana MD - 12/23/2007 12:43 PM CDT WEIGHT: 148lbs BLOOD PRESSURE: 120/70 Right Arm Sitting NURSE NAME: Izabel pinto R CHIEF COMPLAINT Patient here for follow up hyperlipidemia, hypertension. HISTORY: HISTORY: 272.4-HYPERLIPIDEMIA The patient is tolerating the medications. 401.9-HYPERTENSION, UNSPECIFIED The patient is tolerating the medication. 436-ILL DEFINED CEREBROVASCULAR DISEASE(NOT STROKE) The patient denies loss of vision, transient ischemic symptoms, sudden weakness or numbness, difficulty swallowing, or confusion. 790.21-ABNORMAL FASTING BLOOD GLUCOSE eating sweets 530.81-GASTROESOPHAGEAL REFLUX (GERD) norx, has occ dysphagia PHYSICAL EXAMINATION: CONSTITUTIONAL: GENERAL APPEARANCE: Healthy appearing patient in no distress. NECK/THYROID: Trachea midline. No thyroid enlargement, tenderness, or mass. No supraclavicular or cervical adenopathy. RESPIRATORY: Clear to auscultation and percussion. Normal respiratory effort. CARDIOVASCULAR: CARDIAC: Regular rhythm. No murmurs, rubs, or gallops. ARTERIAL: No aortic bruits. EDEMA/VARICOSITIES OF EXTREMITIES: No edema or varicosities. GASTROINTESTINAL: ABDOMEN: Soft, non-tender, without masses. Bowel sounds active. LIVER/SPLEEN/KIDNEY: No hepatosplenomegaly, tenderness or nodularity. Kidneys not palpable. ASSESSMENT/PLAN: 272.4-HYPERLIPIDEMIA cont med 401.9-HYPERTENSION, UNSPECIFIED cont med 436-ILL DEFINED CEREBROVASCULAR DISEASE(NOT STROKE) cont med 790.21-ABNORMAL FASTING BLOOD GLUCOSE discussed diet reassess LAB ORDERS: 3 mo Order number: [id number] Test Ordered: COMPREHENSIVE METABOLIC PANEL W/ GLOMERULAR FILTRATION RATE, ESTIMATED (EGFR) 62614 Order number: [id number] Test Ordered: LIPID PANEL 7600 Order number: [id number] Test Ordered: HEMOGLOBIN A1c 496 530.81-GASTROESOPHAGEAL REFLUX (GERD) refer egd SPECIALTY REFERRAL: GASTROENTEROLOGY Dr. Alfred Wren ph: [phone] fax: [phone].EGD, dysphagia RETURN VISIT : Patient instructed to return in 3 months. Electronically Signed by: Peña Aldana MD on Wednesday, October 18, 2006 documented in this encounter Plan of Treatment Upcoming Encounters Date Type Department Care Team (Late st Contact Info) Description 07/10/2025 10:40 AM MILL HELPER Office Visit [facility] Primary Care [place] [address] [place] [address] Peña Aldana MD [address] [place] [address] [address] [place] [address] 10/01/2025 8:45 AM MILL HELPER Procedure visit [facility] HEART AND VASCULAR EP AT [address] [place] [address] 12/17/2025 10:30 AM CDT Procedure visit [facility] HEART AND VASCULAR EP AT [address] [place] [address] 12/17/2025 11:00 AM CDT Office Visit [facility] HEART AND VASCULAR EP AT [address] [place] [address] Ebony Miller NP [address] [place] [address] [address] [place] [address] 04/01/2026 10:00 AM CDT Office Visit [facility] Heart and Vascular At [facility] [address] [facility] [address] [place] [address] Evan Patterson MD [address] [facility] [address] [place] [address] documented as of this encounter Visit Diagnoses Not on filedocumented in this encounter Care Teams Cable Lacer Relationship Specialty Start Date End Date Peña Aldana MD [address] [place] [address] [address] [place] [address] PCP - General 11/24/06 documented as of this encounter
--- OUTSIDE RECORDS SUMMARY | 2025-06-29 18:16 | XMS_ITS | Clinical Summary ---
Author Organization [facility] [employer] Address [address] [place] [address] Care Team Providers Care Stopper Maker Name Role Phone Unavailable Primary Care Provider Unavailabl e Source Comments [facility] [employer],non-owned Affiliates and Associated Physician Practices is amultiple site organization consisting of ambulatory clinics and hospital sitesin [place], [place], [place] and [place]. This disclosure is being madepursuant to the Care Everywhere program and may not contain all information available regarding this patient. Last updated 18.[facility] [employer] Social History Tobacco Use Types Packs/Day Years Used Date Smoking Tobacco: Never Assessed Comments Unknown Sex and Gender Information Value Date Recorded Sex Assigned at Not on file Legal Sex Female 8:24 AM CDT Gender Identity Not on file Sexual Orientation Not on file Plan of Treatment Health Maintenance Due Date Last Done Comments BONE DENSITY TESTING 1935 MEDICARE AWV 12 MONTHS 1935 DTAP/TDAP/TD VACCINES (1 - Tdap) 01/21/1956 PNEUMOCOCCAL VACCINE 50+ (1 of 1 - PCV) 1987 ZOSTER VACCINE (1 of 2) 1987 Respiratory Syncytial Virus (RSV) Vaccine Pt: or over 60 yrs (1 - 1-dose 75+ series) 01/21/2012 DEPRESSION SCREENING 08/02/2024 COVID-19 VACCINE (1 - 2024-2 6 season) 2025 INFLUENZA VACCINE (#1) 2025 HEPATITIS B VACCINE Aged Out No longe r eligible based on patient's age to complete this topic HIB VACCINE Aged Out No longer eligi ble based on patient's age to complete this topic HPV VACCINE Aged Out No longer eligi ble based on patient's age to complete this topic MENINGOCOCCAL (Group B) VACC INE SHARED DECISION-MAKING Aged Out No longer eligibl e based on patient's age to complete this topic MENINGOCOCCAL GROUPS A/C/Y/W VACCINE Aged Out No longer eligible b ased on patient's age to complete this topic Insurance MEDICARE [facility]
--- OUTSIDE RECORDS SUMMARY | 2025-06-29 18:16 | XMS_ITS | Encounter Summary ---
Author Organization [facility] Address [address] [place] [address] Care Team Providers Care Finisher Card Tender Name Role Phone Otoniel Springer MD Primary Care Provider [phone] Encounter Details Date Type Department Care Team (Late Contact Info) Description 04/19/2006 Outpatient Historical [facility] Internal Medicine [address] [address] Otoniel Springer MD [address] [place] [address] [address] [place] [address] Social History Tobacco Use Types Packs/Day Years Used Date Smoking Tobacco: Never Assessed Comments Unknown Sex and Gender Information Value Date Recorded Sex Assigned at Not on file Legal Sex Female 3:30 AM NSH TEACHER Gender Identity Not on file Sexual Orientation Not on file documented as of this encounter Last Filed Vital Signs Vital Sign Reading Time Taken Comments Blood Pressure 116/68 04/19/2006 3:00 PM CDT Pulse - - Temperature - - Respiratory Rate - - Oxygen Saturation - - Inhaled Oxygen Concentration - - Weight 67.6 kg (149 lb) 04/19/2006 3:00 PM CDT Height - - Body Mass Index 25.98 10/02/2003 10:00 AM NSH TEACHER documented in this encounter Plan of Treatment Upcoming Encounters Date Type Department Care Team (Late Contact Info) Description 07/10/2025 10:40 AM NSH TEACHER Office Visit [facility] Primary Care [address] [place] [address] Otoniel Springer MD [address] [place] [address] [address] [place] [address] 10/01/2025 8:45 AM NSH TEACHER Procedure visit [facility] HEART AND VASCULAR EP AT [address] [place] [address] 12/17/2025 10:30 AM CDT Procedure visit [facility] HEART AND VASCULAR EP AT [address] [place] [address] 12/17/2025 11:00 AM CDT Office Visit [facility] HEART AND VASCULAR EP AT [address] [place] [address] Ebony Miller, WILLIAM [address] [place] [address] [address] [place] [address] 04/01/2026 10:00 AM CDT Office Visit [facility] Heart and Vascular At [address] [place] [address] Evan Patterson MD [address] [place] [address] [address] [place] [address] documented as of this encounter Visit Diagnoses Not on filedocumented in this encounter Care Teams Finisher Card Tender Relationship Specialty Start Date End Date Otoniel Springer MD [address] [place] [address] [address] [place] [address] PCP - General 11/24/06 documented as of this encounter
--- OUTSIDE RECORDS SUMMARY | 2025-06-29 18:16 | XMS_ITS | Encounter Summary ---
Author Organization [facility] Address [address] [place] [address] Care Team Providers Care Manager Medical Affairs Name Role Phone Otoniel Springer MD Primary Care Provider [phone] Encounter Details Date Type Department Care Team (Late st Contact Info) Description 04/07/2007 Orders Only [facility] Internal Medicine [address] [address] Otoniel Springer MD [address] [place] [address] Social History Tobacco Use Types Packs/Day Years Used Date Smoking Tobacco: Never Assessed Comments Unknown Sex and Gender Information Value Date Recorded Sex Assigned at Not on file Legal Sex Female 3:30 AM AUTOMOTIVE GENERAL MANAGER Gender Identity Not on file Sexual Orientation Not on file documented as of this encounter Progress Notes * Otoniel Springer MD - 12/16/2007 4:02 PM CDT WEIGHT: 151lbs BLOOD PRESSURE: 128/70 Left Arm Sitting NURSE NAME: [place] N TOBACCO USE Patient does not currently use tobacco. CHIEF COMPLAINT Shingles on abdomen-waistline HISTORY: had abd pain simmons in er neg now with rash x 1d, pain and burning SOCIAL HISTORY: TOBACCO USE: Has no significant smoking history. [...] ABDOMEN: Soft, non-tender, without masses. Bowel sounds active.zoster right abd LIVER/SPLEEN/KIDNEY: No hepatosplenomegaly, tenderness or nodularity. Kidneys not palpable. 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 SILVADENE EXTERNAL CREAME 1 %, DIRECTED, 100 Dispensed, 1 Fills, status: NEW PRESCRIPTION, 04/07/2007. HYDROCODONE-ACETAMINOPHEN ORAL TABLET 5-500 MG, 1 Every Six Hours, As Needed, 50 Dispensed, 1 Fills, status: NEW PRESCRIPTION, 04/07/2007. RETURN VISIT : Instructed to call if not improving. Electronically Signed by: Otoniel Springer MD on April documented in this encounter Plan of Treatment Upcoming Encounters Date Type Department Care Team (Late st Contact Info) Description 07/10/2025 10:40 AM AUTOMOTIVE GENERAL MANAGER Office Visit [facility] Primary Care [address] [place] [address] Otoniel Springer MD [address] [place] [address] [place] [address] 10/01/2025 8:45 AM AUTOMOTIVE GENERAL MANAGER Procedure visit [facility] HEART AND VASCULAR EP AT [place] [address] [address] [facility] [address] [place] [address] 12/17/2025 10:30 AM CDT Procedure visit [facility] HEART AND VASCULAR EP [place] [address] [facility] [address] [place] [address] 12/17/2025 11:00 AM CDT Office Visit [facility] HEART AND VASCULAR EP AT [address] [place] [address] Ebony Miller NP [facility] [address] [place] [address] 04/01/2026 10:00 AM CDT Office Visit [facility] Heart and Vascular At [address] [place] [address] Evan Patterson MD [facility] [address] [place] [address] documented as of this encounter Visit Diagnoses Not on filedocumented in this encounter Care Teams Manager Medical Affairs Relationship Specialty Start Date End Date Otoniel Springer MD [address] [place] [address] [address] [place] [address] PCP - General 11/24/06 documented as of this encounter
--- OUTSIDE RECORDS SUMMARY | 2025-06-29 18:16 | XMS_ITS | Encounter Summary ---
Author Organization [facility] Address [address] [place] [address] Care Team Providers Care Side Laster Staple Name Role Phone Otoniel Springer MD Primary Care Provider Encounter Details Date Type Department Care Team (Late Contact Info) Description 10/18/2006 Outpatient Historical [facility] Internal Medicine [address] [address] Otoniel Springer MD [address] [place] [address] [address] [place] [address] Social History Tobacco Use Types Packs/Day Years Used Date Smoking Tobacco: Never Assessed Comments Unknown Sex and Gender Information Value Date Recorded Sex Assigned at Not on file Legal Sex Female 3:30 AM FOREST NURSERY WORKER Gender Identity Not on file Sexual Orientation Not on file documented as of this encounter Last Filed Vital Signs Vital Sign Reading Time Taken Comments Blood Pressure 120/70 10/18/2006 2:00 PM CDT Pulse - - Temperature - - Respiratory Rate - - Oxygen Saturation - - Inhaled Oxygen Concentration - - Weight 67.1 kg (148 lb) 10/18/2006 2:00 PM CDT Height - - Body Mass Index 25.81 10/02/2003 10:00 AM FOREST NURSERY WORKER documented in this encounter Plan of Treatment Upcoming Encounters Date Type Department Care Team (Late Contact Info) Description 07/10/2025 10:40 AM FOREST NURSERY WORKER Office Visit [facility] Primary Care [address] [place] [phone] Otoniel Springer MD [address] [place] [address] [address] [place] [address] 10/01/2025 8:45 AM FOREST NURSERY WORKER Procedure visit [facility] HEART AND VASCULAR EP AT [address] [place] [address] 12/17/2025 10:30 AM CDT Procedure visit [facility] HEART AND VASCULAR EP AT [address] [place] [address] 12/17/2025 11:00 AM CDT Office Visit [facility] HEART AND VASCULAR EP AT [address] [place] [address] Ebony Miller, WILLIAM [address] [place] [address] [address] [place] [address] 04/01/2026 10:00 AM CDT Office Visit [facility] Heart and Vascular At [address] [place] [address] Evan Patterson MD [address] [place] [address] [address] [place] [address] documented as of this encounter Visit Diagnoses Not on filedocumented in this encounter Care Teams Side Laster Staple Relationship Specialty Start Date End Date Otoniel Springer MD [address] [place] [address] [address] [place] [address] PCP - General 11/24/06 documented as of this encounter
--- OUTSIDE RECORDS SUMMARY | 2025-06-29 18:16 | XMS_ITS | Encounter Summary ---
Author Organization [facility] Address [address] [place] [address] Care Team Providers Care Food Preservation Scientist Name Role Phone Otoniel Springer MD Primary Care Provider [phone] Encounter Details Date Type Department Care Team (Late Contact Info) Description 04/07/[address] [facility] Internal Medicine [address] [address] Otoniel Springer MD [address] [place] [address] [address] [place] [address] Social History Tobacco Use Types Packs/Day Years Used Date Smoking Tobacco: Never Assessed Comments Unknown Sex and Gender Information Value Date Recorded Sex Assigned at Not on file Legal Sex Female 3:30 AM TECHNICIAN ANATOMIC PATHOLOGY Gender Identity Not on file Sexual Orientation Not on file documented as of this encounter Last Filed Vital Signs Vital Sign Reading Time Taken Comments Blood Pressure 130/70 04/07/2005 11:30 AM CDT Pulse - - Temperature - - Respiratory Rate - - Oxygen Saturation - - Inhaled Oxygen Concentration - - Weight 66.7 kg (147 lb) 04/07/2005 11:30 AM CDT Height - - Body Mass Index 25.63 10/02/2003 10:00 AM TECHNICIAN ANATOMIC PATHOLOGY documented in this encounter Plan of Treatment Upcoming Encounters Date Type Department Care Team (Late Contact Info) Description 07/10/2025 10:40 AM TECHNICIAN ANATOMIC PATHOLOGY Office Visit [facility] Primary Care [address] [place] [address] Otoniel Springer MD [address] [place] [address] [address] [place] [address] 10/01/2025 8:45 AM TECHNICIAN ANATOMIC PATHOLOGY Procedure visit [facility] HEART AND VASCULAR EP AT [address] [place] [address] 12/17/2025 10:30 AM CDT Procedure visit [facility] HEART AND VASCULAR EP AT [address] [place] [address] 12/17/2025 11:00 AM CDT Office Visit [facility] HEART AND VASCULAR EP AT [address] [place] [address] Ebony Miller, WILLIAM [address] [place] [address] 2014 [place] [address] 04/01/2026 10:00 AM CDT Office Visit [facility] Heart and Vascular At [address] 2014 [place] [address] Evan Patterson MD [address] [place] [address]29 [place] [address] documented as of this encounter Visit Diagnoses Not on filedocumented in this encounter Care Teams Food Preservation Scientist Relationship Specialty Start Date End Date Otoniel Springer MD [address] [place] [address] [address] [place] [phone] PCP - General 11/24/06 documented as of this encounter
--- OUTSIDE RECORDS SUMMARY | 2025-06-29 18:16 | XMS_ITS | Encounter Summary ---
Author Organization [facility] Address 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 HISTORY: HISTORY: 272.4-HYPERLIPIDEMIA The patient's most recent LDL is at goal. 401.9-HYPERTENSION, UNSPECIFIED The patient`s recent laboratory reviewed. 436-ILL DEFINED CEREBROVASCULAR DISEASE(NOT STROKE) The patient denies loss of vision, transient ischemic symptoms, sudden weakness or numbness, difficulty swallowing, or confusion. 530.81-GASTROESOPHAGEAL REFLUX (GERD) Currently the patient is off all medication. The patient has indigestion. 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 CARDIAC: No chest pain, palpitations, orthopnea, dyspnea on exertion, or paroxysmal nocturnal dyspnea. RESPIRATORY: No dyspnea, cough, hemoptysis or wheezing. : No frequency, urgency, hematuria or dysuria. GI: See HISTORY OF PRESENT ILLNESS. PAST MEDICAL HISTORY: reviewed FAMILY HISTORY: neg lymphoma PHYSICAL EXAMINATION: CONSTITUTIONAL: GENERAL APPEARANCE: Healthy appearing patient in no distress. EARS, NOSE, MOUTH AND THROAT: ORAL: Inspection of gums, lips, palate, and [...] tenderness or nodularity. Kidneys not palpable. SKIN: SKIN: Warm, dry, no diaphoresis, no significant lesions, irritation, rashes or ulcers. No induration, obvious subcutaneous nodules or tightening.sargent for radiation on abd ASSESSMENT/PLAN: 272.4-HYPERLIPIDEMIA cont med 401.9-HYPERTENSION, UNSPECIFIED cont med LAB ORDERS: 3 mo Order number: [id number] Test Ordered: CBC W/ DIFFERENTIAL 3150 Order number: [id number] Test Ordered: COMPREHENSIVE METABOLIC PANEL & GFR 1112 Order number: [id number] Test Ordered: LIPID PANEL 1078 530.81-GASTROESOPHAGEAL REFLUX (GERD) add med--risk gi bleed discussed MEDICATIONS: ACIPHEX ORAL TABLET ENTERIC COATED 20 MG, 1 Every Day, 30 Dispensed, status: NEW PRESCRIPTION, 01/17/2007. 790.21-ABNORMAL FASTING BLOOD GLUCOSE stable, cont diet 202.80-LYMPHOMA discussed, cont rx, expect to cure. RETURN VISIT : Patient instructed to return in 3 months. Electronically Signed by: Otoniel Springer MD on Wednesday, January 17, 2007 documented in this encounter Plan of Treatment Upcoming Encounters Date Type Department Care Team (Late st Contact Info) Description 07/10/2025 10:40 AM SEARCH ENGINEER Office Visit [facility] Primary Care [facility] [address] [place] [address] [address] [address] [place] [phone] Otoniel Springer MD [address] [place] [address] [place] [address] [place] [address] 10/01/2025 8:45 AM SEARCH ENGINEER Procedure visit [facility] HEART AND VASCULAR EP AT [address] [place] [address] 12/17/2025 10:30 AM CDT Procedure visit [facility] HEART AND VASCULAR EP AT [address] [place] [address] 12/17/2025 11:00 AM CDT Office Visit [facility] HEART AND VASCULAR EP AT [address] [place] [address] Ebony Miller NP [address] [place] [address] 2014 [place] [address] 04/01/2026 10:00 AM CDT Office Visit [facility] Heart and Vascular At [address] 2014 [place] [address] Evan Patterson MD [address] [place] [address]29 [place] [address] documented as of this encounter Visit Diagnoses Not on filedocumented in this encounter Care Teams Computer Terminal Operator Relationship Specialty Start Date End Date Otoniel Springer MD [address] [address] [place] [address] PCP - General 11/24/06 documented as of this encounter
--- OUTSIDE RECORDS SUMMARY | 2025-06-29 18:16 | XMS_ITS | Encounter Summary ---
Author Organization [facility] Address [address] [place] [address] Care Team Providers Care Reporting Process Consultant Name Role Phone Otoniel Springer MD Primary Care Provider [phone] Encounter Details Date Type Department Care Team ([facility] Contact Info) Description 10/05/2005 Outpatient Historical [facility] Internal Medicine [address] [address] Otoniel Springer MD [address] [place] [address] [address] [place] [address] Social History Tobacco Use Types Packs/Day Years Used Date Smoking Tobacco: Never Assessed Comments Unknown Sex and Gender Information Value Date Recorded Sex Assigned at Not on file Legal Sex Female 3:30 AM MOLDER OPERATOR Gender Identity Not on file Sexual Orientation Not on file documented as of this encounter Last Filed Vital Signs Vital Sign Reading Time Taken Comments Blood Pressure 110/70 10/05/2005 11:00 AM MOLDER OPERATOR Pulse - - Temperature - - Respiratory Rate - - Oxygen Saturation - - Inhaled Oxygen Concentration - - Weight 65.3 kg (144 lb) 10/05/2005 11:00 AM MOLDER OPERATOR Height - - Body Mass Index 25.11 10/02/2003 10:00 AM MOLDER OPERATOR documented in this encounter Plan of Treatment Upcoming Encounters Date Type Department Care Team (Late Contact Info) Description 07/10/2025 10:40 AM MOLDER OPERATOR Office Visit [facility] Primary Care [address] [place] [address] Otoniel Springer MD [address] [place] [address] [place] [address] [place] [address] 10/01/2025 8:45 AM MOLDER OPERATOR Procedure visit [facility] HEART AND VASCULAR EP AT [address] [place] [address] 12/17/2025 10:30 AM CDT Procedure visit [facility] HEART AND VASCULAR EP AT [address] [place] [address] 12/17/2025 11:00 AM CDT Office Visit [facility] HEART AND VASCULAR EP AT [address] [place] [address] Ebony Miller, WILLIAM [address] [place] [address] [address] [place] [address] 04/01/2026 10:00 AM CDT Office Visit [facility] Heart and Vascular At [address] [place] [address] Evan Patterson MD [address] [place] [address] [address] [place] [address] documented as of this encounter Visit Diagnoses Not on filedocumented in this encounter Care Teams Reporting Process Consultant Relationship Specialty Start Date End Date Otoniel Springer MD [address] [place] [address] [address] [place] [address] PCP - General 11/24/06 documented as of this encounter
--- OUTSIDE RECORDS SUMMARY | 2025-06-29 18:16 | XMS_ITS | Encounter Summary ---
Author Organization [facility] Address [address] [place] [address] Care Team Providers Care Cuff Knitter Name Role Phone Otoniel Springer MD Primary Care Provider Encounter Details Date Type Department Care Team (Late Contact Info) Description 01/14/2004 Outpatient Historical [facility] Internal Medicine [address] [address] Otoniel Springer MD [address] [place] [address] [address] [place] [address] Social History Tobacco Use Types Packs/Day Years Used Date Smoking Tobacco: Never Assessed Comments Unknown Sex and Gender Information Value Date Recorded Sex Assigned at Not on file Legal Sex Female 3:30 AM PASSENGER TRAIN BRAKER Gender Identity Not on file Sexual Orientation Not on file documented as of this encounter Last Filed Vital Signs Vital Sign Reading Time Taken Comments Blood Pressure 150/70 01/14/2004 1:15 PM CDT Pulse - - Temperature - - Respiratory Rate - - Oxygen Saturation - - Inhaled Oxygen Concentration - - Weight 66.7 kg (147 lb) 01/14/2004 1:15 PM CDT Height - - Body Mass Index 25.63 10/02/2003 10:00 AM PASSENGER TRAIN BRAKER documented in this encounter Plan of Treatment Upcoming Encounters Date Type Department Care Team (Late Contact Info) Description 07/10/2025 10:40 AM PASSENGER TRAIN BRAKER Office Visit [facility] Primary Care [address] [place] [address] Otoniel Springer MD [address] [place] [address] [address] [place] [address] 10/01/2025 8:45 AM PASSENGER TRAIN BRAKER Procedure visit [facility] HEART AND VASCULAR EP AT [address] [place] [address] 12/17/2025 10:30 AM CDT Procedure visit [facility] HEART AND VASCULAR EP AT [address] [place] [address] 12/17/2025 11:00 AM CDT Office Visit [facility] HEART AND VASCULAR EP AT [address] [place] [address] Ebony Miller, WILLIAM [address] [place] [address] 2014 [place] [address] 04/01/2026 10:00 AM CDT Office Visit [facility] Heart and Vascular At [address] [place] [address] Evan Patterson MD [address] [place] [address] [address]29 [place] [address] documented as of this encounter Visit Diagnoses Not on filedocumented in this encounter Care Teams Cuff Knitter Relationship Specialty Start Date End Date Otoniel Springer MD [address] [place] [address] [address] [place] [address] PCP - General 11/24/06 documented as of this encounter
--- OUTSIDE RECORDS SUMMARY | 2025-06-29 18:16 | XMS_ITS | Encounter Summary ---
Author Organization [facility] Address [address] [place] [address] Care Team Providers Care Training Generalist Name Role Phone Otoniel Springer MD Primary Care Provider [phone] Encounter Details Date Type Department Care Team (Late st Contact Info) Description 10/21/[address] 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 CURRENT ALLERGY LIST: DYAZIDE SULFA DRUGS PHARMACY NUMBER: [phone] PROBLEMS: COUGH:Patient complains of cough. The symptoms began approximately 2 days ago. Nonproductive HEADACHE: Patient complains of headache. The symptoms began approximately 2 days ago. SHORTNESS OF BREATH: . Only when she coughs SORE THROAT: Patient complains of sore throat. The sore throat began approximately 2 days ago. SECTION 1: REQUESTED ACTION naty 10/21/07 at 11:52 am: MEDICATION REQUEST: Patient wants medications and can not come in. DOCTOR`S RESPONSE: yasir 10/21/07 at 11:56 am MEDICATIONS: Call in to Pharmacy ZITHROMAX Z-ART ORAL TABLET 250 MG, DIRECTED, 1 Dispensed, status: NEW PRESCRIPTION, 10/21/2007.or can see today FINAL ACTION: chana 10/21/07 at 11:58 am Called pharmacy at 10/21/07 at 11:58 am. auto line Electronically Signed by: Clarisa Rodriguez on Sunday, October 21, 2007 documented in this encounter Plan of Treatment Upcoming Encounters Date Type Department Care Team (Late st Contact Info) Description 07/10/2025 10:40 AM DRIVER SUPERVISOR Office Visit [facility] Primary Care [address] [place] [address] Otoniel Springer MD [address] [place] [address] [address] [place] [address] 10/01/2025 8:45 AM DRIVER SUPERVISOR Procedure visit [facility] HEART AND VASCULAR EP AT [address] [place] [address] 12/17/2025 10:30 AM CDT Procedure visit [facility] HEART AND VASCULAR EP AT [address] [place] [address] 12/17/2025 11:00 AM CDT Office Visit [facility] HEART AND VASCULAR EP AT [address] [place] [address] Ebony Miller NP [address] [place] [address] 2014 [place] [address] 04/01/2026 10:00 AM CDT Office Visit [facility] Heart and Vascular At [facility] [address] [facility] [address] [place] [address] Evan Patterson MD [address] [facility] [address] [place] [address] documented as of this encounter Visit Diagnoses Not on filedocumented in this encounter Care Teams Training Generalist Relationship Specialty Start Date End Date Otoniel Springer MD [address] [place] [address] [address] [place] [address] PCP - General 11/24/06 documented as of this encounter
--- OUTSIDE RECORDS SUMMARY | 2025-06-29 18:16 | XMS_ITS | Encounter Summary ---
Author Organization [facility] Address [address] [place] [address] Care Team Providers Care Electrical And Instrument Engineer Name Role Phone Otoniel Springer MD Primary Care Provider [phone] Encounter Details Date Type Department Care Team (Late st Contact Info) Description 08/17/2007 Orders Only [facility] Internal Medicine [address] [address] Otoniel Springer MD [address] [place] [address] Social History Tobacco Use Types Packs/Day Years Used Date Smoking Tobacco: Never Assessed Comments Unknown Sex and Gender Information Value Date Recorded Sex Assigned at Not on file Legal Sex Female 3:30 AM PRIMING MIXTURE CARRIER Gender Identity Not on file Sexual Orientation Not on file documented as of this encounter Progress Notes * Otoniel Springer MD - 12/14/2007 7:14 PM CDT WHO TOOK THE CALL: Otoniel Springer M TIME:08:39 am b 12 ok, iron a little low , start rx kazdam 08/17/07 08:40 am MEDICATIONS: NIFEREX-150 FORTE ORAL CAPSULE CONVENTIONAL, 1 Every Day, 30 Dispensed, 4 Fills, status: NEW PRESCRIPTION, 08/17/2007. farrjr 08/17/07 04:42 pm STAFF FOLLOW UP: Spoke with patient and gave the following message. pharm [phone]. called meds to pharm. jrf Electronically Signed by: Caren Rick on Friday, August 17, 2007 documented in this encounter Plan of Treatment Upcoming Encounters Date Type Department Care Team (Late st Contact Info) Description 07/10/2025 10:40 AM PRIMING MIXTURE CARRIER Office Visit [facility] Primary Care [facility] [address] [place] [address] [address] [place] [address] Otoniel Springer MD [address] [place] [address] [address] [place] [address] 10/01/2025 8:45 AM PRIMING MIXTURE CARRIER Procedure visit [facility] HEART AND VASCULAR EP AT [address] [place] [address] 12/17/2025 10:30 AM CDT Procedure visit [facility] HEART AND VASCULAR EP AT [address] [place] [address] 12/17/2025 11:00 AM CDT Office Visit [facility] HEART AND VASCULAR EP AT [address] [place] [address] Ebony Miller NP [address] [place] [address] 2014 [place] [address] 04/01/2026 10:00 AM CDT Office Visit [facility] Heart and Vascular At [address] [place] [address] Evan Patterson MD [address] [place] [address] [place] [address] documented as of this encounter Visit Diagnoses Not on filedocumented in this encounter Care Teams Electrical And Instrument Engineer Relationship Specialty Start Date End Date Otoniel Springer MD [address] [place] [address] PCP - General 11/24/06 documented as of this encounter
--- OUTSIDE RECORDS SUMMARY | 2025-06-29 18:16 | XMS_ITS | Encounter Summary ---
Author Organization [facility] Address [address] [place] [address] Care Team Providers Care Bottom Brusher Name Role Phone Otoniel Springer MD Primary Care Provider [phone] Encounter Details Date Type Department Care Team (Late st Contact Info) Description 08/15/[address] 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 Primary Care [address] [place] [address] Otoniel Springer MD [address] [place] [address] [address] [place] [address] 10/01/2025 8:45 AM OTR [employer] TRUCK DRIVER Procedure visit [facility] HEART AND VASCULAR EP AT [address] [place] [address] 12/17/2025 10:30 AM CDT Procedure visit [facility] HEART AND VASCULAR EP AT [address] [place] [address] 12/17/2025 11:00 AM CDT Office Visit [facility] HEART AND VASCULAR EP AT [address] [place] [address] Ebony Miller, WILLIAM [address] [place] [address] 2014 [place] [address] 04/01/2026 10:00 AM CDT Office Visit [facility] Heart and Vascular At [address] [place] [address] Evan Patterson MD [address] [place] [address] 2029 [place] [address] documented as of this encounter Visit Diagnoses Not on filedocumented in this encounter Care Teams Bottom Brusher Relationship Specialty Start Date End Date Otoniel Springer MD [address] [place] [address] [place] [address] PCP - General 11/24/06 documented as of this encounter
--- OUTSIDE RECORDS SUMMARY | 2025-06-29 18:16 | XMS_ITS | Encounter Summary ---
Author Organization [facility] Address [address] [place] [address] Care Team Providers Care Boatbuilder Apprentice Wood Name Role Phone Otoniel Springer MD Primary Care Provider [phone] Encounter Details Date Type Department Care Team (Latest Contact Info) Description 11/29/2006 Outpatient Historical [facility] Otoniel Springer MD [address] [place] [address] 102 [place] [address] Lymphomas NEC Extranodal/NOS (CMS/HCC) (Primary Dx) Social History Tobacco Use Types Packs/Day Years Used Date Smoking Tobacco: Never Assessed Comments Unknown Sex and Gender Information Value Date Recorded Sex Assigned at Not on file Legal Sex Female 3:30 AM HAND ALTERATIONS TAILOR Gender Identity Not on file Sexual Orientation Not on file documented as of this encounter Plan of Treatment Upcoming Encounters Date Type Department Care Team (Late st Contact Info) Description 07/10/2025 10:40 AM HAND ALTERATIONS TAILOR Office Visit [facility] Primary Care [address] [place] [address] Otoniel Springer MD [address] [place] [address] [address] [place] [address] 10/01/2025 8:45 AM HAND ALTERATIONS TAILOR Procedure visit [facility] HEART AND VASCULAR EP AT [address] [place] [address] 12/17/2025 10:30 AM CDT Procedure visit [facility] HEART AND VASCULAR EP AT [place] [address] [address] [facility] [address] [place] [address] 12/17/2025 11:00 AM CDT Office Visit [facility] HEART AND VASCULAR EP AT [address] [place] [address] Ebony Miller, WILLIAM [address] [place] [address] 2014 [place] [address] 04/01/2026 10:00 AM CDT Office Visit [facility] Heart and Vascular At [address] [place] [address] Evan Patterson MD [address] [place] [address] 2029 [place] [address] documented as of this encounter Visit Diagnoses Diagnosis Other malignant lymphomas, unspecified site, extranodal and solid organ sites- Primary documented in this encounter Care Teams Boatbuilder Apprentice Wood Relationship Specialty Start Date End Date Otoniel Springer MD [address] [place] [address] [place] [address] PCP - General 11/24/06 documented as of this encounter
--- OUTSIDE RECORDS SUMMARY | 2025-06-29 18:16 | XMS_ITS | Encounter Summary ---
Author Organization [facility] Address [address] [place] [address] Care Team Providers Care Jackscrew Worker Name Role Phone Otoniel Springer MD Primary Care Provider [phone] Encounter Details Date Type Department Care Team (Latest Contact Info) Description 12/08/2006 Outpatient Historical [facility] [address] [facility] [address] [place] [address] Lymphomas NEC Extranodal/NOS (CMS/HCC) (Primary Dx) Social History Tobacco Use Types Packs/Day Years Used Date Smoking Tobacco: Never Assessed Comments Unknown Sex and Gender Information Value Date Recorded Sex Assigned at Not on file Legal Sex Female 3:30 AM ROUGH AND TRUING MACHINE OPERATOR Gender Identity Not on file Sexual Orientation Not on file documented as of this encounter Plan of Treatment Upcoming Encounters Date Type Department Care Team (Late st Contact Info) Description 07/10/2025 10:40 AM ROUGH AND TRUING MACHINE OPERATOR Office Visit [facility] Primary Care [address] [place] [address] Otoniel Springer MD [address] [place] [address] [address] [place] [address] 10/01/2025 8:45 AM ROUGH AND TRUING MACHINE OPERATOR Procedure visit [facility] HEART AND VASCULAR EP AT [place] [address] [facility] [address] [place] [address] 12/17/2025 10:30 AM CDT Procedure visit [facility] HEART AND VASCULAR EP AT [address] [place] [address] 12/17/2025 11:00 AM CDT Office Visit [facility] HEART AND VASCULAR EP AT [address] [place] [address] Ebony Miller NP [address] [place] [address] 2014 [place] [address] 04/01/2026 10:00 AM CDT Office Visit [facility] Heart and Vascular At [address] [place] [address] Evan Patterson MD [address] [place] [address] 2029 [place] [address] documented as of this encounter Visit Diagnoses Diagnosis Other malignant lymphomas, unspecified site, extranodal and solid organ sites- Primary documented in this encounter Care Teams Jackscrew Worker Relationship Specialty Start Date End Date Otoniel Springer MD [address] [place] [address] [place] [address] PCP - General 11/24/06 documented as of this encounter
--- OUTSIDE RECORDS SUMMARY | 2025-06-29 18:16 | XMS_ITS | Encounter Summary ---
Author Organization [facility] Address [address] [place] [address] Care Team Providers Care Shredded Filler Machine Wrapper Layer Name Role Phone Otoniel Springer MD Primary Care Provider [phone] Encounter Details Date Type Department Care Team (Latest Contact Info) Description 12/14/2006 Outpatient Historical [facility] Internal Medicine [address] [address] Otoniel Springer MD [address] [place] [address] [address] [place] [address] Abdominal or Pelvic Swelling, Mass, or Lump, Right Upper Quadrant (Primary Dx) Social History Tobacco Use Types Packs/Day Years Used Date Smoking Tobacco: Never Assessed Comments Unknown Sex and Gender Information Value Date Recorded Sex Assigned at Not on file Legal Sex Female 3:30 AM PIN FEATHER MACHINE OPERATOR Gender Identity Not on file Sexual Orientation Not on file documented as of this encounter Plan of Treatment Upcoming Encounters Date Type Department Care Team (Late st Contact Info) Description 07/10/2025 10:40 AM PIN FEATHER MACHINE OPERATOR Office Visit [facility] Primary Care [address] [place] [address] Otoniel Springer MD [address] [place] [address] [address] [place] [address] 10/01/2025 8:45 AM PIN FEATHER MACHINE OPERATOR Procedure visit [facility] HEART AND VASCULAR EP AT [place] [address] [facility] [address] [place] [address] 12/17/2025 10:30 AM CDT Procedure visit [facility] HEART AND VASCULAR EP AT [place] [address] [address] [facility] [address] [place] [address] 12/17/2025 11:00 AM CDT Office Visit [facility] HEART AND VASCULAR EP AT [address] [place] [address] Ebony Miller, WILLIAM [address] [place] [address] 2014 [place] [address] 04/01/2026 10:00 AM CDT Office Visit [facility] Heart and Vascular At [address] [place] [address] Evan Patterson MD [address] [place] [address] [address] [place] [address] documented as of this encounter Procedures Procedure Name Priority Date/Time Associated Diagnosis Comments HELICOBACTER PYLORI IGG Routine 12/14/2006 2:00 PM CDT documented in this encounter Results * HELICOBACTER PYLORI IGG (12/14/2006 2:00 PM CDT) H. PYLORI IGG <0.91 EIA Value INTERF URBANO SYSTEM Comment: REFERENCE RANGE: < 0.91 NEGATIVE: NO HELICOBACTER PYLORI IGG ANTIBODY DETECTED 0.91 - 1.09 EQUIVOCAL > 1.09 POSITIVE: HELICOBACTER PYLORI IGG ANTIBODY DETECTED A POSITIVE RESULT INDICATES THAT THE PATIENT HAS ANTIBODY TO H. PYLORI. IT DOES NOT DIFFERENTIATE BETWEEN AN ACTIVE OR PAST INFECTION. THE CLINICAL DIAGNOSIS MUST BE INTERPRETED IN CONJUNCTION WITH THE CLINICAL SIGNS AND SYMPTOMS OF THE PATIENT. Lab test performed by: [email or web address] [address] [place] [address] [address] SUGEY LEWIS MD 12/14/2006 2:00 PM CDT us Otoniel Springer MD CHEMISTRY ORDERABLES COM Edit ed INTERFACE SYSTEM Refer to clinic/hospital department documented in this encounter Visit Diagnoses Diagnosis Abdominal or pelvic swelling, mass, or lump, right upper quadrant- Primary documented in this encounter Care Teams Shredded Filler Machine Wrapper Layer Relationship Specialty Start Date End Date Otoniel Springer MD [address] [place] [address] PCP - General 11/24/06 documented as of this encounter
--- OUTSIDE RECORDS SUMMARY | 2025-06-29 18:16 | XMS_ITS | Encounter Summary ---
Author Organization [facility] Address [address] [place] [address] Care Team Providers Care Rn Acls Name Role Phone Otoniel Springer MD Primary Care Provider [phone] Encounter Details Date Type Department Care Team (Late st Contact Info) Description 06/15/2006 Orders Only [facility] Internal Medicine [address] [address] Otoniel Springer MD [address] [place] [address] Social History Tobacco Use Types Packs/Day Years Used Date Smoking Tobacco: Never Assessed Comments Unknown Sex and Gender Information Value Date Recorded Sex Assigned at Not on file Legal Sex Female 3:30 AM SYSTEMS NAVIGATOR Gender Identity Not on file Sexual Orientation Not on file documented as of this encounter Plan of Treatment Upcoming Encounters Date Type Department Care Team (Late st Contact Info) Description 07/10/2025 10:40 AM SYSTEMS NAVIGATOR Office Visit [facility]3] Primary Care [address] [place] [address] Otoniel Springer MD [address] [place] [address] [address] [place] [address] 10/01/2025 8:45 AM SYSTEMS NAVIGATOR Procedure visit [facility] HEART AND VASCULAR EP AT [address] [place] [address] 12/17/2025 10:30 AM CDT Procedure visit [facility] HEART AND VASCULAR EP AT [address] [place] [address] 12/17/2025 11:00 AM CDT Office Visit [facility] HEART AND VASCULAR EP AT [address] [place] [address] Ebony Miller, WILLIAM [address] [place] [address] 2014 [place] [address] 04/01/2026 10:00 AM CDT Office Visit [facility]3] Heart and Vascular At [address] [place] [address] Evan Patterson MD [address] [place] [address] [place] [address] documented as of this encounter Visit Diagnoses Not on filedocumented in this encounter Care Teams Rn Acls Relationship Specialty Start Date End Date Otoniel Springer MD [address] [place] [address] [place] [address] PCP - General 11/24/06 documented as of this encounter
--- OUTSIDE RECORDS SUMMARY | 2025-06-29 18:16 | XMS_ITS | Encounter Summary ---
Author Organization [facility] Address [address] [place] [address] Care Team Providers Care Electron Beam Welder Name Role Phone Otoniel Springer MD Primary Care Provider [phone] Encounter Details Date Type Department Care Team (Late Contact Info) Description 10/02/2003 Outpatient [facility] Internal Medicine [address] [address] Otoniel Springer MD [address] [place] [address] Social History Tobacco Use Types Packs/Day Years Used Date Smoking Tobacco: Never Assessed Comments Unknown Sex and Gender Information Value Date Recorded Sex Assigned at Not on file Legal Sex Female 3:30 AM PATIENT SERVICES SPECIALIST Gender Identity Not on file Sexual Orientation Not on file documented as of this encounter Last Filed Vital Signs Vital Sign Reading Time Taken Comments Blood Pressure 130/70 10/02/2003 10:00 AM PATIENT SERVICES SPECIALIST Pulse - - Temperature - - Respiratory Rate - - Oxygen Saturation - - Inhaled Oxygen Concentration - - Weight 65.3 kg (144 lb) 10/02/2003 10:00 AM PATIENT SERVICES SPECIALIST Height 161.3 cm (5' 3.5) 10/02/2003 10:00 AM CS T Body Mass Index 25.11 10/02/2003 10:00 AM PATIENT SERVICES SPECIALIST documented in this encounter Plan of Treatment Upcoming Encounters Date Type Department Care Team (Late Contact Info) Description 07/10/2025 10:40 AM PATIENT SERVICES SPECIALIST Office Visit [facility] Primary Care [facility] [address] [facility] [place] [place] [address] [place] [address] Otoniel Springer MD [address] [facility] [address] [place] [address] 10/01/2025 8:45 AM PATIENT SERVICES SPECIALIST Procedure visit [facility] HEART AND VASCULAR EP AT [address] [place] [address] 12/17/2025 10:30 AM CDT Procedure visit [facility] HEART AND VASCULAR EP AT [address] [place] [address] 12/17/2025 11:00 AM CDT Office Visit [facility] HEART AND VASCULAR EP AT [address] [place] [address] Ebony Miller, WILLIAM [facility] 2014 [place] [address] 04/01/2026 10:00 AM CDT Office Visit [facility] Heart and Vascular At [address] [place] [address] Evan Patterson MD [facility] [address] [place] [address] documented as of this encounter Visit Diagnoses Not on filedocumented in this encounter Care Teams Electron Beam Welder Relationship Specialty Start Date End Date Otoniel Springer MD [address] [place] [address] [address] [place] [address] PCP - General 11/24/06 documented as of this encounter
--- OUTSIDE RECORDS SUMMARY | 2025-06-29 18:16 | XMS_ITS | Encounter Summary ---
Author Organization [facility] Address [address] [place] [address] Care Team Providers Care Receiving Teller Name Role Phone Otoniel Springer MD Primary Care Provider [phone] Encounter Details Date Type Department Care Team ([facility] Contact Info) Description 07/15/2004 Outpatient Historical [facility] Internal Medicine [address] [address] Otoniel Springer MD [address] [place] [address] [address] [place] [address] Social History Tobacco Use Types Packs/Day Years Used Date Smoking Tobacco: Never Assessed Comments Unknown Sex and Gender Information Value Date Recorded Sex Assigned at Not on file Legal Sex Female 3:30 AM FINGER COBBLER Gender Identity Not on file Sexual Orientation Not on file documented as of this encounter Last Filed Vital Signs Vital Sign Reading Time Taken Comments Blood Pressure 130/80 07/15/2004 10:30 AM FINGER COBBLER Pulse - - Temperature - - Respiratory Rate - - Oxygen Saturation - - Inhaled Oxygen Concentration - - Weight 65.3 kg (144 lb) 07/15/2004 10:30 AM FINGER COBBLER Height - - Body Mass Index 25.11 10/02/2003 10:00 AM FINGER COBBLER documented in this encounter Plan of Treatment Upcoming Encounters Date Type Department Care Team (Late Contact Info) Description 07/10/2025 10:40 AM FINGER COBBLER Office Visit [facility] Primary Care [address] [place] [address] Otoniel Springer MD [address] [place] [address] [address] [address] [place] [address] 10/01/2025 8:45 AM FINGER COBBLER Procedure visit [facility] HEART AND VASCULAR EP AT [address] [place] [address] 12/17/2025 10:30 AM CDT Procedure visit [facility] HEART AND VASCULAR EP AT [address] [place] [address] 12/17/2025 11:00 AM CDT Office Visit [facility] HEART AND VASCULAR EP AT [address] [place] [address] Ebony Miller, WILLIAM [address] [place] [address] [address] [place] [address] 04/01/2026 10:00 AM CDT Office Visit [facility] Heart and Vascular At [address] [place] [address] Evan Patterson MD [address] [place] [address] [address] [place] [address] documented as of this encounter Visit Diagnoses Not on filedocumented in this encounter Care Teams Receiving Teller Relationship Specialty Start Date End Date Otoniel Springer MD [address] [place] [address] [address] [place] [address] PCP - General 11/24/06 documented as of this encounter
--- OUTSIDE RECORDS SUMMARY | 2025-06-29 18:16 | XMS_ITS | Encounter Summary ---
Author Organization [facility] Address [address] [place] [address] Care Team Providers Care Nutrition Tech Name Role Phone Otoniel Springer MD Primary Care Provider [phone] Encounter Details Date Type Department Care Team (Late Contact Info) Description 04/07/[address] [facility] Internal Medicine [address] [address] Otoniel Springer MD [address] [place] [address] [address] [place] [address] Social History Tobacco Use Types Packs/Day Years Used Date Smoking Tobacco: Never Assessed Comments Unknown Sex and Gender Information Value Date Recorded Sex Assigned at Not on file Legal Sex Female 3:30 AM TEMPERING KILN TENDER Gender Identity Not on file Sexual Orientation Not on file documented as of this encounter Last Filed Vital Signs Vital Sign Reading Time Taken Comments Blood Pressure 128/70 04/07/2007 9:45 AM CDT Pulse - - Temperature - - Respiratory Rate - - Oxygen Saturation - - Inhaled Oxygen Concentration - - Weight 68.5 kg (151 lb) 04/07/2007 9:45 AM CDT Height - - Body Mass Index 26.33 10/02/2003 10:00 AM TEMPERING KILN TENDER documented in this encounter Plan of Treatment Upcoming Encounters Date Type Department Care Team (Late Contact Info) Description 07/10/2025 10:40 AM TEMPERING KILN TENDER Office Visit [facility] Primary Care [address] [place] [address] Otoniel Springer MD [address] [place] [address] [address] [place] [address] 10/01/2025 8:45 AM TEMPERING KILN TENDER Procedure visit [facility] HEART AND VASCULAR EP AT [address] [place] [address] 12/17/2025 10:30 AM CDT Procedure visit [facility] HEART AND VASCULAR EP AT [address] [place] [address] 12/17/2025 11:00 AM CDT Office Visit [facility] HEART AND VASCULAR EP AT [address] [place] [address] Ebony Miller, WILLIAM [address] [place] [address] 2014 [place] [address] 04/01/2026 10:00 AM CDT Office Visit [facility] Heart and Vascular At [address] 2014 [place] [address] Evan Patterson MD [address] [place] [address] [address] [place] [address] documented as of this encounter Visit Diagnoses Not on filedocumented in this encounter Care Teams Nutrition Tech Relationship Specialty Start Date End Date Otoniel Springer MD [address] [place] [address] [address] [place] [phone] PCP - General 11/24/06 documented as of this encounter
--- OUTSIDE RECORDS SUMMARY | 2025-06-29 18:16 | XMS_ITS | Encounter Summary ---
Author Organization [facility] Address [address] [place] [address] Care Team Providers Care Engraver Jewelry Name Role Phone Otoniel Springer MD Primary Care Provider [phone] Encounter Details Date Type Department Care Team (Late Contact Info) Description 10/26/2008 Outpatient Historical [facility] Glenda Worley MD [address] [place] [address] [address] [place] [address] Social History Tobacco Use Types Packs/Day Years Used Date Smoking Tobacco: Never Alcohol Use Standard Drinks/Week Comments Yes 0 (1 standard drink = 0.6 oz pur e alcohol) Comments No Sex and Gender Information Value Date Recorded Sex Assigned at Not on file Legal Sex Female 3:30 AM AIRPORT DRIVER Gender Identity Not on file Sexual Orientation Not on file documented as of this encounter Plan of Treatment Upcoming Encounters Date Type Department Care Team (Late Contact Info) Description 07/10/2025 10:40 AM AIRPORT DRIVER Office Visit [facility] Primary Care [address] [place] [address] Otoniel Springer MD [facility] [address] [place] [address] 10/01/2025 8:45 AM AIRPORT DRIVER Procedure visit [facility] HEART AND VASCULAR EP AT [address] [place] [address] 12/17/2025 10:30 AM CDT Procedure visit [facility] HEART AND VASCULAR EP AT [place] [address] [address] [facility] [address] [place] [address] 12/17/2025 11:00 AM CDT Office Visit [facility] HEART AND VASCULAR EP AT [address] [place] [address] Ebony Miller NP [facility] 2014 [place] [address] 04/01/2026 10:00 AM CDT Office Visit [facility] Heart and Vascular At [address] [place] [address] Evan Patterson MD [address] [place] [address] [address] [place] [address] documented as of this encounter Procedures Procedure Name Priority Date/Time Associated Diagnosis Comments PATHOLOGY Routine 10/26/2008 8:50 AM CDT documented in this encounter Results * PATHOLOGY (10/26/2008 8:50 AM CDT) FINAL REPORT [place] [address] [place], [place] [address] Patient: AALIYAH IVAN : 1935 Procedure Date: 10/26/2008 Accession Date: 10/26/2008 Case No: [id number] Ordering Dr: GLENDA WORLEY Case types AW, BW, FW, NW and SH are performed by [facility], [place], [place] SURGICAL PATHOLOGY & NON-GYNECOLOGIC CYTOPATHOLOGY REPORT DIAGNOSIS STOMACH, FUNDUS, BIOPSY: - FOCAL ACTIVE GASTRITIS. Specimen Description: Gastric body biopsy. Operative Procedure: EGD. Patient Information/History/Di agnosis: History of MALT lymphoma. Gross: Received in a single container labeled Aaliyah Ivan, gastric body biopsy are four pieces of bravo tissue ranging from 0.1 to 0.3 cm that are submitted in A1. [facility] 10.26.2008 11:46 am Microscopic: The slides are labeled [id number], Aaliyah Ivan. The gastric biopsy consists of multiple pieces of fundic mucosa. There is focal active gastritis. The lamina propria contains occasional chronic inflammatory cells, including plasma cells. There is no morphologic evidence of persistent lymphoma. No atrophy or intestinal metaplasia is seen. An immunohistochemical stain for Helicobacter pylori is interpreted as negative. Note on use of immunocytochemistry reagents: This test was developed and its performance characteristic determined by [facility], Department of Laboratory Medicine. It has not been cleared or approved by the U.S. Food and Drug Administration. The FDA has determined that such clearance or approval is not necessary. The test is used for clinical purpose. It should not be regarded as investigational or for research. This laboratory is certified to perform high complexity clinical testing. [facility] 10.27.2008 10:07 am Staging Form: No. ELECTRONIC SIGNATURE FOR BLUE RM M.D.- 10/29/08 12:27 pm INTERFACE SYSTEM Specimen of unknown material (specimen) 10/26/2008 8:50 AM CDT Glenda Worley MD PATHOLOGY/CYTOLOGY ORDERABL ES Edited INTERFACE SYSTEM Refer to clinic/hospital department documented in this encounter Visit Diagnoses Not on filedocumented in this encounter Care Teams Engraver Jewelry Relationship Specialty Start Date End Date Otoniel Springer MD [address] [place] [address] PCP - General 11/24/06 documented as of this encounter
--- OUTSIDE RECORDS SUMMARY | 2025-06-29 18:16 | XMS_ITS | Encounter Summary ---
Author Organization [facility] Address [address] [place] [address] Care Team Providers Care Epidemiology Internship Name Role Phone Otoniel Springer MD Primary Care Provider [phone] Encounter Details Date Type Department Care Team (Late Contact Info) Description 05/01/2008 Outpatient Historical [facility] Dflt Department Glenda Worley MD [address] [facility] [address] [place] [address] Social History Tobacco Use Types Packs/Day Years Used Date Smoking Tobacco: Never Alcohol Use Standard Drinks/Week Comments Yes 0 (1 standard drink = 0.6 oz pur e alcohol) Comments No Sex and Gender Information Value Date Recorded Sex Assigned at Not on file Legal Sex Female 3:30 AM MEDICAL COLLECTIONS SPECIALIST Gender Identity Not on file Sexual Orientation Not on file documented as of this encounter Plan of Treatment Upcoming Encounters Date Type Department Care Team (Late Contact Info) Description 07/10/2025 10:40 AM MEDICAL COLLECTIONS SPECIALIST Office Visit [facility] Primary Care [place] [address] [place] [address] Otoniel Springer MD [address] [place] [address] [address] [place] [address] 10/01/2025 8:45 AM MEDICAL COLLECTIONS SPECIALIST Procedure visit [facility] HEART AND VASCULAR EP AT [address] [place] [address] 12/17/2025 10:30 AM CDT Procedure visit [facility] HEART AND VASCULAR EP AT [facility] [address] [facility] [address] [place] [address] 12/17/2025 11:00 AM CDT Office Visit [facility] HEART AND VASCULAR EP AT [place] [address] [facility] [address] [place] [address] Ebony Miller NP [address] [facility] 2014 [place] [address] 04/01/2026 10:00 AM CDT Office Visit [facility] Heart and Vascular At [place] [address] [facility] [address] [place] [address] Evan Patterson MD [facility] [address] [place] [address] documented as of this encounter Procedures Procedure Name Priority Date/Time Associated Diagnosis Comments PATHOLOGY Routine 05/01/2008 3:27 PM CDT documented in this encounter Results * PATHOLOGY (05/01/2008 3:27 PM CDT) FINAL REPORT [facility] [address] [place] [place], [place] [address] Patient: AALIYAH IVAN : 1935 Procedure Date: 05/01/2008 Accession Date: 05/01/2008 Case No: [id number] Ordering Dr: GLENDA WORLEY Case types AW, BW, FW, NW and SH are performed by [facility] [place], [place] SURGICAL PATHOLOGY & NON-GYNECOLOGIC CYTOPATHOLOGY REPORT DIAGNOSIS STOMACH, BIOPSY: - NO SIGNIFICANT HISTOPATHOLOGIC ABNORMALITIES (SEE DESCRIPTION). - NO EVIDENCE OF LYMPHOMA. Specimen Description: Gastric. Operative Procedure: EGD. 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 Gross: Received in a single container, labeled Aaliyah Ivan., gastric are four pieces of bravo tissue, ranging from 0.1 to 0.2 cm in greatest dimension. The entire specimen is submitted in cassette A1. [facility]/GD 05.01.2008 06:48 pm Microscopic: The slides are labeled [id number] and Ivan Aaliyah Casa. Sections of the gastric biopsy show four fragments of fundic-type gastric mucosa. An active inflammatory infiltrate is not seen. The lamina propria is slightly edematous, but the tissue is otherwise unremarkable. There is no evidence of residual lymphoma. OJ[facility]/TMZ 05.02.2008 11:10 am Staging Form: No. ELECTRONIC SIGNATURE FOR QUAN HANEY M.D.- 05/02/08 09:13 pm INTERFACE SYSTEM Specimen of unknown material (specimen) 05/01/2008 3:27 PM CDT us Glenda Worley MD PATHOLOGY/CYTOLOGY ORDERABL ES Edited INTERFACE SYSTEM Refer to clinic/hospital department documented in this encounter Visit Diagnoses Not on filedocumented in this encounter Care Teams Epidemiology Internship Relationship Specialty Start Date End Date Otoniel Springer MD [address] [place] [address] PCP - General 11/24/06 documented as of this encounter
--- OUTSIDE RECORDS SUMMARY | 2025-06-29 18:16 | XMS_ITS | Encounter Summary ---
Author Organization [facility] Address [address] [place] [address] Care Team Providers Care Telephonic Nurse Name Role Phone Otoniel Springer MD Primary Care Provider [phone] Encounter Details Date Type Department Care Team ([facility] Contact Info) Description 10/14/2004 Outpatient Historical [facility] Internal Medicine [address] [address] Otoniel Springer MD [address] [place] [address] [address] [place] [address] Social History Tobacco Use Types Packs/Day Years Used Date Smoking Tobacco: Never Assessed Comments Unknown Sex and Gender Information Value Date Recorded Sex Assigned at Not on file Legal Sex Female 3:30 AM HONEY PROCESSOR Gender Identity Not on file Sexual Orientation Not on file documented as of this encounter Last Filed Vital Signs Vital Sign Reading Time Taken Comments Blood Pressure 132/68 10/14/2004 9:15 AM HONEY PROCESSOR Pulse - - Temperature - - Respiratory Rate - - Oxygen Saturation - - Inhaled Oxygen Concentration - - Weight 65.8 kg (145 lb) 10/14/2004 9:15 AM HONEY PROCESSOR Height - - Body Mass Index 25.28 10/02/2003 10:00 AM HONEY PROCESSOR documented in this encounter Plan of Treatment Upcoming Encounters Date Type Department Care Team (Late Contact Info) Description 07/10/2025 10:40 AM HONEY PROCESSOR Office Visit [facility] Primary Care [address] [place] [address] Otoniel Springer MD [address] [place] [address] [address] [place] [address] 10/01/2025 8:45 AM HONEY PROCESSOR Procedure visit [facility] HEART AND VASCULAR EP AT [address] [place] [address] 12/17/2025 10:30 AM CDT Procedure visit [facility] HEART AND VASCULAR EP AT [address] [place] [address] 12/17/2025 11:00 AM CDT Office Visit [facility] HEART AND VASCULAR EP AT [address] [place] [address] Ebony Miller, WILLIAM [address] [place] [address] [address] [place] [address] 04/01/2026 10:00 AM CDT Office Visit [facility] Heart and Vascular At [address] [place] [address] Evan Patterson MD [address] [place] [address] [address] [place] [address] documented as of this encounter Visit Diagnoses Not on filedocumented in this encounter Care Teams Telephonic Nurse Relationship Specialty Start Date End Date Otoniel Springer MD [address] [place] [address] [address] [place] [address] PCP - General 11/24/06 documented as of this encounter
--- OUTSIDE RECORDS SUMMARY | 2025-06-29 18:16 | XMS_ITS | Encounter Summary ---
Author Organization [facility] Address [address] [place] [address] Care Team Providers Care Enrollment Advisor Name Role Phone Otoniel Springer MD Primary Care Provider [phone] Encounter Details Date Type Department Care Team ([facility] Contact Info) Description 04/18/2007 Outpatient Historical [facility] Internal Medicine [address] [address] Otoniel Springer MD [address] [place] [address] [address] [place] [address] Social History Tobacco Use Types Packs/Day Years Used Date Smoking Tobacco: Never Assessed Comments Unknown Sex and Gender Information Value Date Recorded Sex Assigned at Not on file Legal Sex Female 3:30 AM PRODUCT DEMONSTRATOR Gender Identity Not on file Sexual Orientation Not on file documented as of this encounter Last Filed Vital Signs Vital Sign Reading Time Taken Comments Blood Pressure 128/80 04/18/2007 1:00 PM CDT Pulse - - Temperature - - Respiratory Rate - - Oxygen Saturation - - Inhaled Oxygen Concentration - - Weight 68 kg (150 lb) 04/18/2007 1:00 PM CDT Height - - Body Mass Index 26.15 10/02/2003 10:00 AM PRODUCT DEMONSTRATOR documented in this encounter Plan of Treatment Upcoming Encounters Date Type Department Care Team (Late Contact Info) Description 07/10/2025 10:40 AM PRODUCT DEMONSTRATOR Office Visit [facility] Primary Care [address] [place] [address] Otoniel Springer MD [address] [place] [address] [address] [place] [address] 10/01/2025 8:45 AM PRODUCT DEMONSTRATOR Procedure visit [facility] HEART AND VASCULAR EP AT [address] [place] [address] 12/17/2025 10:30 AM CDT Procedure visit [facility] HEART AND VASCULAR EP AT [address] [place] [address] 12/17/2025 11:00 AM CDT Office Visit [facility] HEART AND VASCULAR EP AT [address] [place] [address] Ebony Miller, WILLIAM [address] [place] [address] [address] [place] [address] 04/01/2026 10:00 AM CDT Office Visit [facility] Heart and Vascular At [address] [place] [address] Evan Patterson MD [address] [place] [address] [address] [place] [address] documented as of this encounter Visit Diagnoses Not on filedocumented in this encounter Care Teams Enrollment Advisor Relationship Specialty Start Date End Date Otoniel Springer MD [address] [place] [address] [address] [place] [address] PCP - General 11/24/06 documented as of this encounter
--- OUTSIDE RECORDS SUMMARY | 2025-06-29 18:16 | XMS_ITS | Clinical Summary ---
Author Organization [facility] Address [address] [place] [address] Phone Care Team Providers Care Automatic Mold Sander Name Role Phone Otoniel Springer MD Primary Care Provider [phone] Allergies Active Allergy Reactions Criticality Noted Date Comments Sulfa Antibiotics Swelling 08/15/2018 Ankle swelling Medications rosuvastatin (CRESTOR) 10 MG TabletIndication s:one daily Take by mouth daily. Indications : one daily Active furosemide (LASIX) 20 MG TabletIndication s:one every other day Take 20 mg by mouth daily. Indications : one every other day Active clopidogrel (PLAVIX) 75 MG TabletIndication s:one every other day Take 75 mg by mouth Every other day. Active metoprolol tartrate (LOPRESSOR) 50 MG TabletIndication s:pt takes 1/2 of a pill--05/30/19 Take 25 mg by mouth daily. Indications : pt takes 1/2 of a pill--05/30 Active Cholecalciferol (VITAMIN D-3 PO)Indications:2 daily Take 2,000 Int'l Units by mouth. Active Calcium Carbonate-Vitami n D (CALTRATE 600+D PO) Take by mouth daily. Active Cetirizine HCl (ZYRTEC ALLERGY PO)Indications:d aily in spring months Take by mouth daily. Active Famotidine (PEPCID PO) Take by mouth daily. Active mometasone (NASONEX) 50 MCG/ACT Suspension 2 Sprays by Nasal route. 09/25/2014 Active Nutritional Supplements (Boost High Protein) Liquid Take 1 Bottle by mouth daily. 30 mL 3 02/29/2024 Active sAXagliptin HCl (ONGLYZA) 2.5 MG Tablet Take 2.5 mg by mouth every morning. 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 08/29/2018 Normocytic anemia 08/15/2018 Stage 3 chronic kidney disease 08/15/2018 Encounters Date Type Department Care Team Description 05/28/2025 11:20 AM CDT Office Visit [facility] Oncology Services [address] [place] [address] Jorge Luis Stacy MD Iron deficiency (Primary Dx); Normocytic anemia; Stage 3 chronic kidney disease, unspecified whether stage 3a or 3b CKD; MALT lymphoma Discharge Disposition: Discharged to home or Selfcare 05/28/2025 Travel from Last 3 Months Immunizations Immunization Administration Dates Next Due Influenza, High-dose, Quadrivalent 05/20/2021 Influenza, Quadrivalent, Adjuvanted 05/26/2023 Influenza, high-dose, trivalent, PF 05/19/2024,0 04/17/2020,05/29/2019 Pneumococcal Vaccine Adult - 23 Valent 9 Social History Tobacco Use Types Packs/Day Years Used Date Smoking Tobacco: Never Smokeless Tobacco: Never Tobacco Cessation:Counseling Given: Not Answered Alcohol Use Standard Drinks/Week Comments Yes 0 (1 standard drink = 0.6 oz pur e alcohol) occasionally Comments No Sex and Gender Information Value Date Recorded Sex Assigned at Not on file Legal Sex Female 12:01 AM CDT Gender Identity Not on file Sexual Orientation Not on file Last Filed Vital Signs Vital Sign Reading Time Taken Comments Blood Pressure 163/68 05/28/2025 11:19 AM CDT Pulse 62 05/28/2025 11:19 AM CDT Temperature 36.3 C (97.4 F) 05/28/2025 11:19 AM CDT Respiratory Rate 16 05/28/2025 11:1 9 AM CDT Oxygen Saturation 96% 05/28/2025 11: 19 AM CDT Inhaled Oxygen Concentration - - Weight 56.6 kg (124 lb 12.8 oz) 025 11:19 AM CDT Height 157.5 cm (5' 2) 05/28/2025 11:1 9 AM CDT Body Mass Index 22.83 05/28/2025 11:19 AM CDT Plan of Treatment Upcoming Encounters Date Type Department Care Team (Late st Contact Info) Description 11/26/2025 11:20 AM CDT Office [facility] [address] [place] [phone] Jorge Luis Stacy MD [address] [place] [address] Discharge Disposition: Discharged to home or Selfcare Health Maintenance Due Date Last Done Comments Hepatitis C Virus (HCV) Screening 1935 Medicare Subsequent AWV [id number] 12/02/2024 12/03/2023, 07/28/2021, 07/10/2020, Additional history exists SARS-COV-2 Immunization ( season) 2025 05/12/2022, 06/24/2021, 10/03/2020, Additional history exists DEXA Bone Density 08/23/2026 08/23/2024, , 07/24/2020, Additional history exists Zoster Immunization Completed 07/04/2018, 05/06/2018, 04/24/2018, Additional history exists Pneumococcal Immunization (50+ years) Completed 03/06/2019, 08/29/2013, 08/15/2007, Additional history exists Pneumococcal Immunization Combined Discontinued 03/06/2019, 08/29/2013, 08/15/2007, Additional history exists DTaP/Tdap/Td Immunization Discontinued 2021, 06/03/2012, 07/03/2002 TdaP Immunization Completed 07/06/2022, 06/03/2012 Respiratory Syncytial Virus (RSV) Immunization (Adult) Completed 09/23/2023 Influenza Immunization Completed , 05/19/2024, 04/19/2024, Additional history exists Hepatitis B Immunization Aged Out No longer eligible based on patient's age to complete this topic Human Papillomavirus (HPV) Immunization Aged Out No longer eligible based on patient's age to complete this topic Meningococcal Immunization (ACWY) Aged Out No longer eligible based on patient's age to complete this topic Rotavirus Immunization Aged Out No lo nger eligible based on patient's age to complete this topic Procedures Procedure Name Priority Date/Time Associated Diagnosis Comments IRON,TRANSFERN,CALC.TIBC,% SAT 05/17/2025 12:00 AM CDT ELECTROPHORESIS W/ TOTAL PROTEIN SERUM 05/17/2025 12:00 AM CDT FERRITIN 05/17/2025 12:00 AM CDT COMPLETE BLOOD COUNT (CBC) WITH DIFF 05/17/2025 12:00 AM CDT CMP (COMPREHENSIVE METABOLIC PANEL) 05/17/2025 12:00 AM CDT IRON,TRANSFERN,CALC.TIBC,% SAT Routine 05/17/2025 12:00 AM CDT Iron deficiency ELECTROPHORESIS W/ TOTAL PROTEIN SERUM Routine 05/17/2025 12:00 AM CDT Monoclonal gammopathy present on serum protein electrophoresis Normocytic anemia FERRITIN Routine 05/17/2025 12:00 AM CDT Iron deficiency COMPLETE BLOOD COUNT (CBC) WITH DIFF Routine 05/17/2025 12:00 AM CDT Iron deficiency CMP (COMPREHENSIVE METABOLIC PANEL) Routine 05/17/2025 12:00 AM CDT Iron deficiency from Last 3 Months Results * IRON,TRANSFERN,CALC.TIBC,%SAT (05/17/2025 12:00 AM CDT) Only the most recent of2 resultswithin the time period is included. 05/17/2025 Radha Castorena APRN, AGENCY RECRUITER CHEMISTRY ORDERABLES F inal Result Performing Organization Address [facility] de Phone Number SCAN * FERRITIN (05/17/2025 12:00 AM CDT) Only the most recent of2 resultswithin the time period is included. 05/17/2025 Radha Castorena APRN, AGENCY RECRUITER CHEMISTRY ORDERABLES F inal Result Performing Organization Address [facility] Co de Phone Number SCAN * ELECTROPHORESIS W/ TOTAL PROTEIN SERUM (05/17/2025 12:00 AM CDT) Only the most recent of2 resultswithin the time period is included. 05/17/2025 us Radha Castorena APRN, AGENCY RECRUITER CHEMISTRY ORDERABLES F inal Result Performing Organization Address [facility] de Phone Number SCAN * CMP (COMPREHENSIVE METABOLIC PANEL) (05/17/2025 12:00 AM CDT) Only the most recent of2 resultswithin the time period is included. 05/17/2025 Radha Castorena APRN, AGENCY RECRUITER CHEMISTRY ORDERABLES F inal Result Performing Organization Address [facility] de Phone Number SCAN * COMPLETE BLOOD COUNT (CBC) WITH DIFF (05/17/2025 12:00 AM CDT) Only the most recent of2 resultswithin the time period is included. 05/17/2025 Radha Castorena APRN, AGENCY RECRUITER HEMATOLOGY ORDERABLES Final Result Performing Organization Address [facility] de Phone Number SCAN from Last 3 Months Insurance MEDICARE [facility] Care Teams Automatic Mold Sander Relationship Specialty Start Date End Date Otoniel Springer MD [address] [place] [phone] PCP - General 06/03/16
--- OUTSIDE RECORDS SUMMARY | 2025-06-29 18:16 | XMS_ITS | Patient Health Record ---
Author Organization [facility] Address [address] [place] [address] Care Team Providers Care Decision Support Manager Name Role Phone Timoteo Aiken Primary Care Provider [phone] Reason For Referral No Information Immunizations Vaccine Route Administration Date Status Comme nts COVID-19 Moderna 1ST IM Intramuscular 09/05/2020 Administered EUA date 0. Screening reviewed and consent signed. Patient tolerated well. COVID-19 Moderna 2nd IM Intramuscular 10/03/2020 Administered Plan Of Treatment No Information Insurance Providers Payer Name Payer Address Payer Phone Subscriber Number Group Number Insured Name Patient Relationship to Insured Coverage Start Date Coverage End Date [facility] 3[facility] [address] [place] [address] [id number] Aaliyah Peck Self - patient is the insured 1
--- OUTSIDE RECORDS SUMMARY | 2025-06-29 18:16 | XMS_ITS | Encounter Summary ---
Author Organization [facility] Address [address] [place] [address] Care Team Providers Care Security Ambassador Name Role Phone Unavailable Primary Care Provider Unavailabl e Encounter Details Date Type Department Care Team (Late st Contact Info) Description 11/01/2024 Lab Requisition [facility] - DermPath Lab [address] [facility] [place] [phone] Arnol Overton MD [address] [place] [address] Social History Tobacco Use Types Packs/Day Years Used Date Smoking Tobacco: Never Assessed Comments Unknown Sex and Gender Information Value Date Recorded Sex Assigned at Not on file Legal Sex Female 8:24 AM CDT Gender Identity Not on file Sexual Orientation Not on file documented as of this encounter Plan of Treatment Not on file documented as of this encounter Procedures Procedure Name Priority Date/Time Associated Diagnosis Comments DERMATOPATHOLOGY Routine 10/30/2024 12:0 0 AM CDT documented in this encounter Results * DERMATOPATHOLOGY (10/30/2024 12:00 AM CDT) Case Report Dermatopathology Report Case: [id number] Authorizing Provider: Arnol Overton MD Collected: 10/30/2024 12:00 AM Ordering Location: [facility] - Received: 11/01/2024 08:52 AM DermPath Lab Pathologist: Ct Huertas MD Specimens: A) - Skin, left yazdanism B) - Skin, right ventral forearm 2:30 PM CDT DERMATOPATHOLOGY LABORATORY Final Diagnosis Specimen A. SKIN, left yazdanism: ACTINIC KERATOSIS (L57.0) SEBORRHEIC KERATOSIS, IRRITATED AND INFLAMED (L82.0) (see microscopic description) Specimen B. 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 The specimen consists of a shave biopsy measuring 3 pieces 14x7x1,6x5x1,3x3x1 mm. Jar 0. Specimen B: Received is one formalin filled container labeled with the patient's name and designated right ventral forearm. The specimen consists of a shave biopsy measuring 14x8x1 mm. Jar 0. 2:30 PM CDT DERMATOPATHOLOGY LABORATORY Microscopic Description Specimen A. SKIN, left yazdanism: There is focal parakeratosis. The lower half of the epidermis shows disorderly maturation of keratinocytes with nuclear pleomorphism. In addition, sections show adjacent acanthosis, papillomatosis, hyperkeratosis, and squamous eddies. There is a lymphohistiocytic infiltrate within the papillary dermis. BerEp4 immunostain does not show significant staining in lesional cells. Additional deeper sections were obtained and reviewed. Specimen B. SKIN, right ventral forearm: The epidermis shows parakeratosis, full thickness disorderly maturation of keratinocytes, mitoses at different levels, and dyskeratotic cells. 2:30 PM CDT DERMATOPATHOLOGY LABORATORY Disclaimer An external and internal positive and negative controls are appropriate for the histochemical, immunohistochemical and immunofluorescence stain(s) in this case (if any), except where stated explicitly. The performance characteristics of the stain(s) cited in this report were developed and its performance characteristic determined by the Dermatopathology Laboratory at [facility], directed by Dr. Basim Smith. These tests need not be, and therefore are not, approved by the [place] Food and Drug Administration. The tests are used for clinical purposes. Billing Codes Specimen Charges Stain Charges 40198 12549 1 1 37615 1 2:30 PM CDT DERMATOPATHOLOGY LABORATORY Embedded Images 2:30 PM CDT DERMATOPATHOLOGY LABORATORY Pathology/Cytology TISSUE SPECIMEN FROM SKIN / Unknown 10/30/2024 11/01/2024 8:52 AM CDT Miscellaneous samples (specimen) TISSUE SPECIMEN FROM SKIN / Unknown 10/30/2024 11/01/2024 8:52 AM CDT us Arnol Overton MD LAB - PATHOLOGY/CYTOLOGY ORDERAB LES Final Result DERMATOPATHOLOGY LABORATORY [facility] - Department of Dermatology Center [facility] Specialized Medicine [address] [place] [address], [address] [phone] documented in this encounter Visit Diagnoses Not on filedocumented in this encounter
--- OUTSIDE RECORDS SUMMARY | 2025-06-29 18:16 | XMS_ITS | Encounter Summary ---
Author Organization [facility] Address 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 Gender Identity Not on file Sexual Orientation Not on file documented as of this encounter Plan of Treatment Upcoming Encounters Date Type Department Care Team (Late st Contact Info) Description 07/10/2025 10:40 AM FARM WORKER Office Visit [facility] Primary Care [address] [place] [address] Otoniel Springer MD [address] [place] [address] [address] [place] [address] 10/01/2025 8:45 AM FARM WORKER Procedure visit [facility] HEART AND VASCULAR EP AT [address] [place] [address] 12/17/2025 10:30 AM CDT Procedure visit [facility] HEART AND VASCULAR EP AT [address] [place] [address] 12/17/2025 11:00 AM CDT Office Visit [facility] HEART AND VASCULAR EP AT [address] [place] [address] Ebony Miller, WILLIAM [address] [place] [address] [address] [place] [address] 04/01/2026 10:00 AM CDT Office Visit [facility] Heart and Vascular At [address] [place] [address] Evan Patterson MD [address] [place] [address] [address] [place] [address] documented as of this encounter Visit Diagnoses Not on filedocumented in this encounter Care Teams Garnetter Relationship Specialty Start Date End Date Otoniel Springer MD [address] [place] [address] [place] [address] PCP - General 11/24/06 documented as of this encounter
--- OUTSIDE RECORDS SUMMARY | 2025-06-29 18:16 | XMS_ITS | Encounter Summary ---
Author Organization [facility] Address [address] [place] [address] Care Team Providers Care Groover And Turner Name Role Phone Otoniel Springer MD Primary Care Provider [phone] Encounter Details Date Type Department Care Team (Late st Contact Info) Description 08/15/2007 Outpatient Historical [facility] Internal Medicine [address] [address] Otoniel Springer MD [address] [place] [address] Social History Tobacco Use Types Packs/Day Years Used Date Smoking Tobacco: Never Assessed Comments Unknown Sex and Gender Information Value Date Recorded Sex Assigned at Not on file Legal Sex Female 3:30 AM JERSEY KNITTER Gender Identity Not on file Sexual Orientation Not on file documented as of this encounter Plan of Treatment Upcoming Encounters Date Type Department Care Team (Late st Contact Info) Description 07/10/2025 10:40 AM JERSEY KNITTER Office Visit [facility] Primary Care [address] [place] [address] Otoniel Springer MD [address] [place] [address] [address] [place] [address] 10/01/2025 8:45 AM JERSEY KNITTER Procedure visit [facility] HEART AND VASCULAR EP AT [address] [place] [address] 12/17/2025 10:30 AM CDT Procedure visit [facility] HEART AND VASCULAR EP AT [address] [place] [address] 12/17/2025 11:00 AM CDT Office Visit [facility] HEART AND VASCULAR EP AT [address] [place] [address] Ebony Miller, WILLIAM [address] [place] [address] [address] [place] [address] 04/01/2026 10:00 AM CDT Office Visit [facility] Heart and Vascular At [address] [place] [address] Evan Patterson MD [address] [place] [address] [address] [place] [address] documented as of this encounter Visit Diagnoses Not on filedocumented in this encounter Care Teams Groover And Turner Relationship Specialty Start Date End Date Otoniel Springer MD [address] [place] [address] [place] [address] PCP - General 11/24/06 documented as of this encounter
--- OUTSIDE RECORDS SUMMARY | 2025-06-29 18:16 | XMS_ITS | Encounter Summary ---
Author Organization [facility] Address [address] [place] [address] Care Team Providers Care Mail Rider Name Role Phone Otoniel Springer MD Primary Care Provider [phone] Encounter Details Date Type Department Care Team (Late st Contact Info) Description 11/29/[address] [facility] Support Serv. (Adt Cardiology-) [place] [place] [address] Narayan Acosta MD NO ADDRESS ON FILE Social History Tobacco Use Types Packs/Day Years Used Date Smoking Tobacco: Never Assessed Comments Unknown Sex and Gender Information Value Date Recorded Sex Assigned at Not on file Legal Sex Female 3:30 AM POLICY LOAN CALCULATOR Gender Identity Not on file Sexual Orientation Not on file documented as of this encounter Plan of Treatment Upcoming Encounters Date Type Department Care Team (Late st Contact Info) Description 07/10/2025 10:40 AM POLICY LOAN CALCULATOR Office Visit [facility] Primary Care [address] [place] [address] Otoniel Springer MD [address] [place] [address] [address] [place] [address] 10/01/2025 8:45 AM POLICY LOAN CALCULATOR Procedure visit [facility] HEART AND VASCULAR EP AT [place] [address] [facility] [address] [place] [address] 12/17/2025 10:30 AM CDT Procedure visit [facility] HEART AND VASCULAR EP AT [place] [address] [facility] [address] [place] [address] 12/17/2025 11:00 AM CDT Office Visit [facility] HEART AND VASCULAR EP AT [place] [address] [address] [facility] [address] [place] [address] Ebony Miller NP [facility] [address] [facility] [address] [place] [address] 04/01/2026 10:00 AM CDT Office Visit [facility] Heart and Vascular At [address] [place] [address] Evan Patterson MD [facility] [address] [place] [address] documented as of this encounter Visit Diagnoses Not on filedocumented in this encounter Care Teams Mail Rider Relationship Specialty Start Date End Date Otoniel Springer MD [address] [place] [address] [address] [place] [address] PCP - General 11/24/06 documented as of this encounter
--- OUTSIDE RECORDS SUMMARY | 2025-06-29 18:16 | XMS_ITS | Encounter Summary ---
Author Organization [facility] Address 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 HISTORY: HISTORY: 272.4-HYPERLIPIDEMIA The patient is tolerating the medications. The patient`s most recent labs reviewed. 401.9-HYPERTENSION, UNSPECIFIED The patient is tolerating the medication. The patient denies chest pain, shortness of breath, dyspnea on exertion, pedal edema, or headache. 436-ILL DEFINED CEREBROVASCULAR DISEASE(NOT STROKE) The patient denies loss of vision, transient ischemic symptoms, sudden weakness or numbness, difficulty swallowing, or confusion. No complications noted from the medication presently being used. 715.17-OSTEOARTHROSIS AND ALLIED DISORDERS The patient has joint pain and stiffness. SOCIAL HISTORY: TOBACCO USE: Has no significant smoking history. DISCUSSED SMOKING: neg. PHYSICAL EXAMINATION: CONSTITUTIONAL: GENERAL APPEARANCE: Healthy appearing patient in no distress. NECK/THYROID: Trachea midline. No thyroid enlargement, tenderness, or mass. No supraclavicular or cervical adenopathy. RESPIRATORY: Clear to auscultation and percussion. Normal respiratory effort. CARDIOVASCULAR: CARDIAC: Regular rhythm. No murmurs, rubs, or gallops. ARTERIAL: Aortic pulses of normal amplitude with no bruits. EDEMA/VARICOSITIES OF EXTREMITIES: No edema or varicosities. GASTROINTESTINAL: ABDOMEN: Soft, non-tender, without masses. Bowel sounds active. LIVER/SPLEEN/KIDNEY: No hepatosplenomegaly, tenderness or nodularity. Kidneys not palpable. ASSESSMENT/PLAN: 216.9-SKIN BENIGN NEOPLASM SITE UNSPECIFIED saw derm 272.4-HYPERLIPIDEMIA cont med, enc diet 401.9-HYPERTENSION, UNSPECIFIED stable LAB ORDERS: 6 mo Order number: [id number] Test Ordered: COMPREHENSIVE METABOLIC PANEL W/ GLOMERULAR FILTRATION RATE, ESTIMATED (EGFR) [id number] Order number: [id number] Test Ordered: LIPID PANEL 7600 436-ILL DEFINED CEREBROVASCULAR DISEASE(NOT STROKE) cont med 715.90-OSTEOARTHROSIS UNSPECIFIED stable RETURN VISIT : Patient instructed to return in 6 months. Electronically Signed by: Otoniel Springer MD on Wednesday, April 19, 2006 documented in this encounter Plan of Treatment Upcoming Encounters Date Type Department Care Team (Late st Contact Info) Description 07/10/2025 10:40 AM CERTIFIED SURGICAL ASSISTANT Office Visit [facility] Care [place] [address] [place] [address] Otoniel Springer MD [address] [place] [address] [address] [place] [address] 10/01/2025 8:45 AM CERTIFIED SURGICAL ASSISTANT Procedure visit [facility] HEART AND VASCULAR EP AT [place] [address] [address] [facility] [address] [place] [address] 12/17/2025 10:30 AM CDT Procedure visit [facility] HEART AND VASCULAR EP AT [address] [place] [address] 12/17/2025 11:00 AM CDT Office Visit [facility] HEART AND VASCULAR EP AT [address] [place] [address] Ebony Miller, WILLIAM [facility] [address] [facility] [address] [place] [address] 04/01/2026 10:00 AM CDT Office Visit [facility] Heart and Vascular At [address] [place] [address] Evan Patterson MD [facility] [address] [place] [address] documented as of this encounter Visit Diagnoses Not on filedocumented in this encounter Care Teams Card Lacer Relationship Specialty Start Date End Date Otoniel Springer MD [address] [place] [address] [address] [place] [address] PCP - General 11/24/06 documented as of this encounter
--- OUTSIDE RECORDS SUMMARY | 2025-06-29 18:16 | XMS_ITS | Encounter Summary ---
Author Organization [facility] Address 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 HEART AND VASCULAR EP AT [address] [place] [address] 12/17/2025 10:30 AM CDT Procedure visit [facility] HEART AND VASCULAR EP AT [place] [address] [address] [facility] [address] [place] [address] 12/17/2025 11:00 AM CDT Office Visit [facility] HEART AND VASCULAR EP AT [place] [address] [address] [facility] [address] [place] [address] Ebony Miller NP [facility] [address] [facility] [address] [facility] [address] [place] [address] 04/01/2026 10:00 AM CDT Office Visit [facility] Heart and Vascular At [place] [address] [address] [facility] [address] [place] [address] Evan Patterson MD [facility] [address] [place] [address] documented as of this encounter Procedures Procedure Name Priority Date/Time Associated Diagnosis Comments POC CREATININE Routine 11/24/2006 2:13 PM CDT documented in this encounter Results * POC CREATININE (11/24/2006 2:13 PM CDT) CREATININE POC 0.9 0.6 - 1.3 mg/dL INTERFACE SYSTEM 11/24/2006 2:13 PM CDT us Otoniel Springer MD POINT OF CARE TESTING Edited INTERFACE SYSTEM Refer to clinic/hospital department documented in this encounter Visit Diagnoses Diagnosis Calculus of gallbladder without mention of cholecystitis or obstruction- Primary documented in this encounter Care Teams Work From Home Relationship Specialty Start Date End Date Otoniel Springer MD [address] [place] [address] [address] [place] [address] PCP - General 11/24/06 documented as of this encounter
[2025-06-29 18:33] VITALS: BP 171/65; PULSE 60; RESP 13; O2SAT 99
[2025-06-29 19:00] VITALS: PULSE 60; RESP 12; O2SAT 99
[2025-06-29 19:01] VITALS: BP 163/61; PULSE 60; RESP 13; O2SAT 100
[2025-06-29 19:31] VITALS: BP 159/64; PULSE 61; RESP 13; O2SAT 100
[2025-06-29 20:03] VITALS: BP 159/64; PULSE 60; RESP 18; O2SAT 100
== END 2025-06-29 20:04 | disposition home or self-care (01) ==
PROVIDERS: Emergency Provider Physician Assistant
DX: S01.81XA Laceration without foreign body of other part of head, initial encounter (principal); S60.222A Contusion of left hand, initial encounter; I62.03 Nontraumatic chronic subdural hemorrhage; I10 Essential (primary) hypertension; E78.5 Hyperlipidemia, unspecified; Z95.0 Presence of cardiac pacemaker; Z79.02 Long term (current) use of antithrombotics/antiplatelets; M85.842 Other specified disorders of bone density and structure, left hand; M18.9 Osteoarthritis of first carpometacarpal joint, unspecified; M19.042 Primary osteoarthritis, left hand; W10.9XXA Fall (on) (from) unspecified stairs and steps, initial encounter
CPT/HCPCS: 12011; 70450; 70486; 72125; 73130; 90471; 99284